=== PATIENT | female | born 1970 | race Caucasian/White ===

== ENCOUNTER → 2017-12-29 14:42 | Outpatient (CLI) | payer BC, SELFPAY ==
[2017-12-29 16:13] LABS: CRP 7.53 mg/L (0.0-3.0)
[2018-01-01 16:10] LABS: Endomysial Antibody IgA Negative (Negative)
[2018-01-02 14:41] LABS: Immunoglobulin A 202 mg/dL (87-352); t-Transglutaminase IgA <2 U/mL (0-3)
== END ==
PROVIDERS: Visit Provider Internal Medicine Gastroenterology
DX: R10.9 Unspecified abdominal pain (principal); R19.7 Diarrhea, unspecified
CPT/HCPCS: 36415; 82784; 83516; 86140; 86255

== ENCOUNTER → 2018-07-05 14:25 | Outpatient (CLI) | payer BC, SELFPAY ==
--- NOTE | 2018-07-05 11:15 | TOBX_PTH ---
PATIENT: JACQUELINE BREAUX LOC: [facility] U#:[id number] AGE/SX: 55/F ROOM: RE07/05/[address]: Dr. River Nguyen MD : 1970 BED: DIS: SPEC #: [id number] RECD: 07/05/18 14:22 STATUS: TIFFANIE KALLI #: [id number] WERNER: 07/05/18 11:[address]: River Nguyen DEPT: SURGICAL PATHOLOGY RECD BY: Jef Faith ENTERED: 07/06/18 08:41 SP TYPE: TONGUE BX OTHR DR: No Primary Care Phys Tissues: Tongue, NOS Procedures: Special Stain Group I Surgery Specimen Level IV GMS Stain (control) HEADER OPERATION: Biopsy of tongue PRE-OP DIAGNOSIS: Chronic tongue irritation; History of irritable bowel syndrome TISSUE SUBMITTED: Punch biopsy ventral surface of tongue MICROSCOPIC DIAGNOSIS Ventral surface of tongue, punch biopsy: A piece of squamous mucosa with underlying skeletal muscle tissue with psoriasiform epithelial hyperplasia. Mild chronic inflammation. Special stain for fungi is negative for organisms; matched control is appropriate. Negative for malignancy. MONTY:rajinder 07/09/18 COMMENT Clinical correlation and appropriate follow up are necessary. MICROSCOPIC DESCRIPTION Slides are reviewed. GROSS DESCRIPTION Received is one container labeled with the patient's name and not further designated. The specimen consists of a single cylindrical fragment of haq tissue measuring 0.3 x 0.2 x 0.2 cm. The specimen is totally submitted in one cassette. / AM:rajinder 07/06/18 TC:3 CPT: 80416, 23808
== END ==
PROVIDERS: Visit Provider Otolaryngology
DX: K14.8 Other diseases of tongue (principal)
CPT/HCPCS: 88305; 88312

== ENCOUNTER 2018-07-10 13:46 | Emergency (ER) | payer BC, SELFPAY ==
[2018-07-10 13:46] VITALS: BP 124/80; PULSE 99; RESP 16; TEMP 36.9; O2SAT 100; BMI 18.9
--- NOTE | 2018-07-10 15:14 | ED.VISSUMM ---
- ER Visit Summary Date of Service: 07/10/18 Chief Complaint: Tongue pain and kidney infection History of Present Illness: The patient is a 47 F who presents with 2 complaints, tongue pain at the site of a biopsy and kidney infection. Patient states that 5 days ago she had a biopsy performed on her tongue due to chronic mouth pain. There was a absorbable suture placed that she states was irritating the roof of her mouth so she cut the top off of it. She states the sutures have not come out yet and she is concerned the site is infected because she states pus came out of it this morning. She denies measured fever but states she has been having sweats and subjective fever. She is also complaining of a kidney infection and states that she gets them frequently. She started taking Azo yesterday due to dysuria. She is having lower back pain, suprapubic discomfort with urination, but states she has not peed at all today. She is decreased p.o. intake due to the tongue pain. History of chronic mouth irritation, IBS, depression, and patient is in pain management in [place]. She status post hysterectomy and hip/knee replacement. ENT in [place] is Dr. Nguyen. Her next follow-up appointment is on July 18. Physical Examination: Vital signs: afebrile, hemodynamically stable, no hypoxia on room air General: well nourished, well developed, in no distress Skin: warm, dry, no rash, no pallor HEENT: normocephalic and atraumatic; PERRL, EOMI, tacky mucous membranes, tongue has small 0.5cm linear biopsy site with granulation tissue, no sutures noted, mild induration under the biopsy site, no exudate, no other oral lesions Cardiovascular: regular rate and rhythm without murmurs, no peripheral edema, 2+ pulses all distal extremities Respiratory: No increased work of breathing, lungs are clear to auscultation bilaterally, no rales, rhonchi or wheezing Abdominal: Abdomen is soft, mild suprapubic tenderness with normoactive bowel sounds, no guarding or rebound, no masses, no CVA tenderness MSK: Moves all extremities, no deformities, normal strength Neuro: Awake and alert, oriented ?4. No facial droop, sensation and motor function intact and symmetric Test Results: Abnormal Lab Results 07/10/18 07/10/18 07/10/18 15:30 15:30 16:49 WBC 8.0 RBC 5.38 Hgb 15.8 H Hct 47.8 H MCV 88.8 MCH 29.4 MCHC 33.1 RDW 13.9 RDW Differential 45.0 H Plt Count 307 MPV 9.6 Immature Gran % (Auto) 0.000 Neut % (Auto) 64.4 Lymph % (Auto) 28.1 [place] % (Auto) 6.1 Eos % (Auto) 1.1 Baso % (Auto) 0.3 Absolute Neuts (auto) 5.2 Absolute Lymphs (auto) 2.25 Total Counted Not Reportable Sodium 143 Potassium 2.8 L Chloride 102 Carbon Dioxide 29.0 Anion Gap 12 BUN 10 Creatinine 0.82 Estim Creat Clear Calc 67.75 Est GFR (MDRD) Af Amer 96 Est GFR (MDRD) Non-Af 79 BUN/Creatinine Ratio 12.3 Glucose 81 Calcium 9.3 Total Bilirubin 0.40 AST 22 ALT 22 Alkaline Phosphatase 86 Total Protein 7.7 Albumin 3.8 Globulin 3.9 Albumin/Globulin Ratio 1.0 Urine Color [place] Urine Clarity Sl Cldy Urine pH 5.0 Ur Specific [place] 1.010 Urine Protein Negative Urine Glucose (UA) Normal Urine Ketones Negative Urine Occult Blood 25 H Urine Nitrite Positive H Urine Bilirubin 3 H Urine Urobilinogen 4 H Ur Leukocyte Esterase 500 H Urine RBC 5-10 SEEN Urine WBC 50-100 SEEN Ur Squamous Epith Cells 10-25 SEEN Amorphous Sediment 1+ URATE Urine Bacteria 1+ Urine Mucus 0 SEEN Emergency Department Course and Treatment: Patient was offered and declined pain medication or antiemetics. Patient's tongue does not look concerning for infection. Dr. Nguyen was consulted, and I discussed the findings on the exam with him. He agreed that it sounded consistent with postbiopsy findings, and does not sound consistent with infection. He stated she already had Magic mouthwash at home and should not need any further prescription for her mouth pain. She is to keep her appointment as already scheduled. Regarding patient's complaint of kidney infection labs were performed showing no leukocytosis. Patient had no renal dysfunction. Potassium was low at 2.8, and patient states she knows she has a history of low potassium. Patient had no EKG changes concerning for electrolyte derangements. She was given oral repletion. Urine was consistent with infection. Patient was started on Cipro for coverage of UTI, with additional coverage if this is early pyelonephritis. Patient is afebrile and has no leukocytosis, thus inpatient management or IV antibiotics are not indicated at this time. Patient was given a prescription for oral potassium supplementation and the prescription for Cipro. She was discharged home and is to keep her appointment with Dr. Nguyen as scheduled. Treatment Plan: [] Disposition: [] Impression: Complicated UTI, hypokalemia, acute on chronic tongue irritation This note was generated with [employer] dictation software. It may contain incorrect words, spelling, and punctuation that were not noted in review of the chart prior to signing ED Disposition - Plan for ED Patient: Disposition: Home or Assisted Living Chief Complaint: Flank Pain Instructions: ED Potassium Deficiency, ED Kidney Infec Female Prescriptions: Ciprofloxacin [Cipro] 500 mg PO BID #14 tab Potassium Chloride [K-Dur] 20 meq PO BID #14 tab Referrals: River Nguyen MD [STAFF PHYSICIAN] - Keep Dilcia appointment Care Physician,No Primary [Primary Care Provider] - Doctor,Your [STAFF PHYSICIAN] - 5-7 Days Additional Instructions: Take the antibiotic exactly as prescribed for the full 7 days for your urine infection. Continue the Azo to help with discomfort. Follow-up with your doctor if you are not having improvement in 3 days. Take the potassium supplements as prescribed for 1 week. Please follow-up with your doctor to discuss her ongoing issues with low potassium. Your follow-up appointment as scheduled on July [address] Nguyen. Continue any medications that he prescribed you to help with symptom relief for your chronic mouth irritation. If you have any worsening of your condition or any new concerning symptoms, please return immediately to the emergency department for another evaluation.
[2018-07-10 15:39] LABS: Absolute Lymphocyte Count 2.25 X10^3/ul (0.83-4.51); Absolute Neutrophil Count 5.2 X10^3/uL (2.0-7.7); Basophil# 0.02 X10^3/uL; Basophil% 0.3 % (0-1); Eosinophil# 0.09 X10^3/uL; Eosinophils% 1.1 % (0-5); Hematocrit 47.8 % (37-47); Hemoglobin 15.8 g/dl (12.0-15.0); Lymphocyte # 2.25 X10^3/ul (4.0); Lymphocyte % 28.1 % (19-41); Mean Corp Hgb Conc 33.1 g/gl (32-36); Mean Corpuscular Hgb 29.4 pg (27.0-32.0); Mean Corpuscular Volume 88.8 fL (81-99); Mean Platelet Vol. 9.6 fl (6.2-12.0); Monocyte# 0.49 X10^3/uL; Monocyte% 6.1 % (0-10); Neutrophil # 5.15 X10^3/uL (2.7-7.7); Neutrophil % 64.4 % (47-70); Platelet Count 307 K/mm3 (150-450); RBC Distribution Width CV 13.9 % (11.6-14.6); Red Blood Count 5.38 M/mm3 (4.2-5.4)
[2018-07-10 15:41] LABS: POSITIVE COUNT NO; POSITIVE DIFFERENTIAL NO; POSITIVE MORPHOLOGY NO
[2018-07-10] MEDS: 0.9% Normal Saline 1,000 ML 1000 ML IV (15:47)
[2018-07-10 15:54] VITALS: BP 125/75; PULSE 95; RESP 14; O2SAT 98
[2018-07-10 16:08] LABS: AST(SGOT) 22 U/L (15-37); Alanine Aminotransfer ALT/SGPT 22 U/L (13-56); Albumin, Serum 3.8 g/dL (3.2-5.0); Alkaline Phosphatase 86 U/L (45-117); Anion Gap 12 (5-15); BUN 10 mg/dL (7-18); BUN/Creat Ratio 12.3 RATIO (10-20); Calcium,Total 9.3 mg/dL (8.5-10.1); Chloride 102 mmol/L (98-107); Creatinine, Serum 0.82 mg/dL (0.55-1.02); EST Glomerular Filtration Rate 79 mL/min (>60); Est Glom Filt Rate - Afr Amer 96 mL/min (>60); Estimated Creatinine Clearance 67.75 ml/min; Globulin 3.9 g/dL (2.2-4.2); Glucose 81 mg/dL (74-106); Potassium 2.8 mmol/L (3.5-5.1); Protein, Total 7.7 g/dL (6.4-8.2); Sodium Level 143 mmol/L (136-145)
[2018-07-10 16:57] LABS: Mucous, Urine 0 SEEN /hpf (<or=2+)
[2018-07-10 17:03] VITALS: BP 131/70; PULSE 85; RESP 14; O2SAT 98
[2018-07-10 17:03] LABS: Glucose, Dipstick Normal (Normal); Ketone-Dipstick Negative (Negative); Leukocyte Esterase-Dipstick 500 /ul (Negative); Nitrite-Dipstick Positive (Negative); Occult Blood-Urine 25 /ul (Negative); Protein-Dipstick Negative (Negative); Urine Urobilinogen 4 mg/dl (Normal)
[2018-07-10 17:04] LABS: Urine Bilirubin Dipstick 3 mg/dL (Negative)
[2018-07-10 17:09] LABS: Color, Urine Orange (Yellow); Urine Clarity Sl Cldy (Clear)
[2018-07-10 17:10] LABS: Red Blood Cells-Urine 5-10 SEEN /hpf (0-5); Squamous Epithelial Cells - UA 10-25 SEEN /hpf (5-10); White Blood Cells 50-100 SEEN /hpf (0-5)
[2018-07-10 17:11] LABS: Amorphous Sediment 1+ URATE; Bacteria 1+ /hpf (None Seen)
--- NOTE | 2018-07-10 17:33 | ED.DEP ---
ED Disposition - Plan for ED Patient: Disposition: Home or Assisted Living Chief Complaint: Flank Pain Instructions: ED Kidney Infec Female, ED Potassium Deficiency Prescriptions: Ciprofloxacin [Cipro] 500 mg PO BID #14 tab Potassium Chloride [K-Dur] 20 meq PO BID #14 tab Referrals: Care Physician,No Primary [Primary Care Provider] - River Nguyen MD [STAFF PHYSICIAN] - Keep Dilcia appointment Doctor,Your [STAFF PHYSICIAN] - 5-7 Days Additional Instructions: Take the antibiotic exactly as prescribed for the full 7 days for your urine infection. Continue the Azo to help with discomfort. Follow-up with your doctor if you are not having improvement in 3 days. Take the potassium supplements as prescribed for 1 week. Please follow-up with your doctor to discuss her ongoing issues with low potassium. Your follow-up appointment as scheduled on July [address] Nguyen. Continue any medications that he prescribed you to help with symptom relief for your chronic mouth irritation. If you have any worsening of your condition or any new concerning symptoms, please return immediately to the emergency department for another evaluation.
[2018-07-10 17:54] VITALS: BP 128/75; PULSE 80; RESP 14; O2SAT 98
== END 2018-07-10 17:57 | disposition home or self-care (01) ==
PROVIDERS: Emergency Provider Emergency Medicine
DX: N39.0 Urinary tract infection, site not specified (principal); E87.6 Hypokalemia; K14.8 Other diseases of tongue; K58.9 Irritable bowel syndrome, unspecified; F32.9 Major depressive disorder, single episode, unspecified; Z90.710 Acquired absence of both cervix and uterus; Z96.649 Presence of unspecified artificial hip joint; Z96.659 Presence of unspecified artificial knee joint
CPT/HCPCS: 80053; 81001; 85025; 87077; 87086; 87088; 87186; 93005; 96360; 96361; 99284

== ENCOUNTER 2019-10-02 06:16 | Day surgery (SDC) | payer BC, SELFPAY ==
[2019-09-19 14:17] VITALS: BMI 18.9
--- NOTE | 2019-09-20 12:02 | HP_ITS ---
I have re-examined the patient. There are no clinical changes since date of exam. Intake Vital Signs 09/19/19 Body Mass Index (BMI) 18.9 09/19/19 Height 5 ft 5 in 09/19/19 Weight: 120 lb 09/19/19 Body Mass Index (BMI) 20.0 Intake Visit Reasons: RIGHT SHOULDER Is patient in pain?: Yes Pain scale (1-10): 10 Allergies sulfamethoxazole [From Bactrim] Allergy (Verified 09/19/19 13:58) Hives trimethoprim [From Bactrim] Allergy (Verified 09/19/19 13:58) Hives Medications Ciprofloxacin [Cipro] 500 mg PO BID #14 tab 07/10/18 [Rx] Potassium Chloride [K-Dur] 20 meq PO BID #14 tab 07/10/18 [Rx] alprazolam 1 mg tablet 1 mg PO BID 09/19/19 [History Confirmed 09/19/19] atorvastatin 10 mg tablet 10 mg PO DAILY 09/19/19 [History Confirmed 09/19/19] bupropion HCl XL 300 mg 24 hr tablet, extended release 300 mg PO QAM 09/19/19 [History Confirmed 09/19/19] eluxadoline 100 mg tablet 100 mg PO BID 09/19/19 [History Confirmed 09/19/19] estradiol 1 mg/gram (0.1 %) transdermal gel packet 1 packet TRANSDERMAL DAILY 09/19/19 [History Confirmed 09/19/19] galcanezumab-gnlm 120 mg/mL subcutaneous syringe 120 mg SC QMONTH 09/19/19 [History Confirmed 09/19/19] hydrochlorothiazide 12.5 mg capsule 12.5 mg PO DAILY 09/19/19 [History Confirmed 09/19/19] ketorolac 15.75 mg/spray nasal spray 15.75 mg INTRANASAL Q8H 09/19/19 [History Confirmed 09/19/19] topiramate XR 100 mg capsule,extended release 24 hr 100 mg PO DAILY 09/19/19 [History Confirmed 09/19/19] PFSH Social History (Updated 09/20/19 @ 12:02 by Marlee Yo DO) Smoking Status: Never smoker HPI RIGHT SHOULDER: Surgical H&P: Yes Details: Parts of this documentation were recorded by a scribe, this documentation accurately reflects the service provided and the decisions made by , Marlee Yo, DO 09/19/19 3636. JACQUELINE BREAUX is a 49 year old F here today for right shoulder pain. Patient notes that she has had right shoulder pain for many months. She denies any known injury. She started exercising and she just noticed weakness. She notes that she has pain over her anterior and posterior shoulder, into her humerus. She states that she has dropped items. Patient has limited shoulder range of motion. Her range of motion is affecting her ADLs. Patient had a steroid injection 4-5 weeks ago which was not helpful. She completed about 8 weeks of physical therapy and was given a HEP, which has not been helpful. Patient sees a pain management doctor in [place] for injections into her cervical spine. Patient had xrays and MRI which she brought with her. She has hydrocodone as needed for her migraines. She is unable to take an anti-inflammatories due to migraines. She also complains of bilateral carpal tunnel. Patient has numbness and tingling into her thumb,index and middle finger. She had an EMG which showed bilateral carpal tunnel. Patient denies any injection. She completed physical therapy for her wrist. Patient wears wrist braces nightly. She states that she wakes up crying due to her pain. Patient notices weakness and is dropping items. ROS Musc Reports joint pain, Reports limited joint movement, Reports muscle weakness, Reports numbness, Reports radiating pain into limb, Reports stiffness, Reports tingling Skin/Breast Reports system reviewed and no additional complaints, except as docu Neuro Yes system reviewed and no additional complaints, except as docu, Yes numbness, Yes tingling Ortho Exam Right Shoulder Skin/Wound: Yes CDI Contralateral Normal: Yes Testing: Positive Hawkin's, Neer's, Speed's, TTP Biceps, PROM-Forward Elevation 0-180, Sulcus Sign and Floyd SHOULDER: weakness with shoulder flexion and IR No rales rhonchi wheezing, no abdominal pain, no audible bruits Assessment & Plan Problems 1. Biceps tendonitis on right M75.21 2. Rotator cuff tear, right M75.101 3. Impingement syndrome of right shoulder M75.41 Plan Personally reviewed the patient's medical history, medications, surgeries and recent exams if available. X-rays were reviewed. There is no obvious fracture, dislocation, or lucency noted. Educated on the anatomy of the shoulder. Spoke with her about the benefits of a shoulder surgery. Reviewed the pre-operative plans with the patient. Risks and benefits of the procedure were fully explained, including but not limited to infection, neurovascular injury, continued pain, arthritis, stiffness, need for further surgery, re-injury, DVT, PE, general risks of anesthesia, and loss of limb or life. The patient understands all the risks and does wish to proceed with written consent. Follow up for 2 week post op appointment or sooner if pain, swelling, numbness or associated symptoms, or concerns develop. All questions answered. Patient in agreement of plan. Coding Level of Care Code Off vis,new,level 3 Diagnoses Biceps tendonitis on right M75.21 Rotator cuff tear, right M75.101 Impingement syndrome of right shoulder M75.41 09/20/19 1202 <Electronically signed by Marlee del valle DO> Date _ Marlee Yo DO
[2019-10-02] VITALS (7 sets, daily range): BP systolic 99–114; BP diastolic 48–62; PULSE 72–82; RESP 16; TEMP 36.1–36.9; O2SAT 93–99; BMI 20.3
[2019-10-02 06:55] LABS: Hematocrit 47.4 % (37-47); Hemoglobin 15.4 g/dL (12.0-15.0); Mean Corp Hgb Conc 32.5 g/dL (32-36); Mean Corpuscular Hgb 30.3 pg (27.0-32.0); Mean Corpuscular Volume 93.3 fL (81-99); Platelet Count 335 K/mm3 (150-450); RBC Distribution Width CV 12.7 % (11.6-14.6); RBC Distribution Width SD 43.6 fl (35.1-43.9); Red Blood Count 5.08 M/mm3 (4.2-5.4); White Blood Count 8.7 K/mm3 (4.4-11.0)
[2019-10-02] MEDS: Lactated Ringers 1,000 ML 100 ML IV ×2 (07:05→09:00)
--- NOTE | 2019-10-02 07:24 | PCM.DC.ORTHO ---
Discharge Diet: No Restrictions - remove dressings on pod4 and apply bandaids to incision sites, may get incision wet at that time, sling at all times unless showering, may move shoulder, wrist and fingers as tolerated, follow up in 2 weeks, call with concerns Discharge Activity: May Not Drive May shower in (days): 1 Ice area for (Minutes): 20 - Every hour while awake. Weight Bearing Status: Weight bearing as tolerated Keep extremity elevated above heart level: Operative Extremity Call your doctor if your incision/area has: Continuous Slow Oozing, Sudden Increased Bleeding, Increased Pain/ Swelling, Increased Redness, Foul Smelling Discharge Call your doctor if you observe: Fever of 101 or Higher, Coldness, Increased Pain, Numbness or Tingling, Change in Color, Calf discomfort Allergies/Adverse Reactions: Allergies sulfamethoxazole [From Bactrim] Allergy (Verified 09/30/19 09:04) Hives trimethoprim [From Bactrim] Allergy (Verified 09/30/19 09:04) Hives NSAIDS (Non-Steroidal Anti-Inflamma Adverse Reaction (Verified 09/30/19 09:05) Other IBS Medications to take at Discharge alprazolam 1 mg tablet 1 mg PO BID 09/19/19 atorvastatin 10 mg tablet 10 mg PO DAILY 09/19/19 bupropion HCl XL 300 mg 24 hr tablet, extended release 300 mg PO QAM 09/19/19 eluxadoline 100 mg tablet 100 mg PO BID 09/19/19 galcanezumab-gnlm 120 mg/mL subcutaneous syringe 120 mg SC QMONTH 09/19/19 hydrochlorothiazide 12.5 mg capsule 12.5 mg PO DAILY 09/19/19 ketorolac 15.75 mg/spray nasal spray 15.75 mg INTRANASAL Q8H PRN 09/19/19 topiramate XR 100 mg capsule,extended release 24 hr 100 mg PO DAILY 09/19/19 Estradiol 1 mg PO DAILY 09/30/19 Hydrocodone Bitart/Apap 5-325 [[place] 5MG-325MG] 1 - 2 tab PO Q6H PRN PRN 5 Days #40 tab 10/02/19 Zolpidem Tartrate [Ambien (Generic)] 5 mg PO QHS PRN PRN #14 tab 10/02/19 The following prescriptions were given: Zolpidem Tartrate [Ambien (Generic)] 5 mg PO QHS PRN PRN #14 tab PRN Reason: Insomnia Transmission Status: Received by [id number] Hydrocodone Bitart/Apap 5-325 [[place] 5MG-325MG] 1 - 2 tab PO Q6H PRN PRN 5 Days #40 tab PRN Reason: Pain Transmission Status: Received by [id number] Primary Care Physician: LIZZY NEGRETE [Other] Test Results: Test results from this visit will be discussed in further detail at your follow-up appointment, if applicable. Please Follow Up With: Marlee Yo, DO - [phone]
--- NOTE | 2019-10-02 07:28 | OP.PCM_ITS ---
Report of Operation Date of Procedure: 10/02/19 Pre-Operative Diagnosis: right shoulder rc tendinosis, biceps tendinosis/labral tear, subacromial impingment syndrome Post-Operative Diagnosis: same Surgery/Procedure Performed:: right shoulder arthroscopy, subacromial decom pression/acromioplasty, labral debridement, open subpec biceps tenodesis practicing urologist: Larry Hampton Type of Anesthesia:: General/Regional Anesthesiologist: Varinder Umanzor Specimen's removed: biceps tendon Estimated Blood Loss (mL): minimal Fluids Replaced: 1200cc lr Description of Procedure: Preop note Patient seen and examined preop holding area. Right shoulder was marked. Patient has history of right shoulder impingement failed conservative treatment including injections and physical therapy patient progressively getting more painful and weaker and would like to proceed with right shoulder arthroscopy repair as irrigated indicated. Risk benefits and alternatives to surgery were discussed the patient. Risks include but not limited to blood loss, blood clot, infection, neurovascular, failure procedure, loss of life and loss of limb. Patient is aware would like proceed with right shoulder arthroscopy repair as indicated. Operative note Patient seen and examined preoperative holding area. Right shoulder was marked. Patient brought to the operating room placed supine on the operating table. Sign, anesthesia, antibiotics were accelerator systems director. Right arm was prepped and draped in usual sterile fashion beachchair positioning. All bony promises well-padded SCDs placed on her contralateral on her bilateral lower extremity. Please note the fci through beachchair position we did recheck her blood pressure and she did anything that was unstable before full beachchair position was maintained. We marked our bony landmarks were marked our portal placement. Timeout was performed. We then insufflated the glenohumeral joint from the posterior aspect. Using 11 blade creator posterior portal began our diagnostic arthroscopy. Her biceps tendon insertion onto the labrum was unstable and there was post anterosuperior labral tearing from the anterior superior aspect of the glenoid. There were no loose bodies in the inferior recess of the glenohumeral joint was intact the subscap was intact the rotator cuff footprint was intact. We then inserted a basket and release the biceps tendon at its insertion onto the labrum. We then gently debrided back to its insertion with the labrum with a of the labrum with a shaver. We then also trim back the unstable labral pieces on the articular aspect from the anterior posterior aspect of the shoulder and irrigated the shoulder with copious amounts of sterile saline. We then moved to the subacromial space. Patient had extensive bursitis throughout. We then created a lateral portal under direct visualization. We then resected back to the bursa is a combination of a shaver and ablator wand coagulating any bleeders. We then coplanar type II acromion with a bur. We irrigated the subacromial space with copious amounts of sterile saline. We closed the portals with interrupted 4-0 nylon stitches. We then moved to our sub-sub-pec tenodesis. We then reprepped the area with the allotted 3 minutes. We made a 2 cm incision just distal to the pec insertion. We dissected down so we used a 15 blade and then dissected down with Metzenbaums to the biceps tendon biceps tendon was then removed was then brought out of the incision we then measured appropriate length and then truncated the remaining biceps sent to pathology for further evaluation. We then whipstitched into the biceps tendon and placed the ends of the suture loop through the Arthrex pec button in the system. We then measured appropriate length for our placement of our biceps onto the bone we drilled unicortical he and then placed the pec button flipped to the needle cortically into the humeral shaft. We then pulled out all of our tension and then oversewed with a free needle through the periosteum into the biceps tendon for reinforcement. We then irrigated the incision with copious muscle sterile saline the incision was closed with 2-0 Vicryl in a running 4-0 Monocryl. Sterile dressings were aerated patient tied procedure well no complications. We then moved to our bilateral carpal tunnel injections under standard sterile technique. Standard sterile patient transferred to recovery room in stable condition no complications Patient did receive a preoperative regional block Postoperative note May move shoulder wrist and hand as tolerated [facility] We will give family pictures in 2 weeks with diagrams Call with increased pain numbness tingling or other issues arises This note was generated with [employer] software. It may contain incorrect words, spelling, and punctuation that were not noted in checking the note before signing.
[2019-10-02] MEDS: Cefazolin 2 GM in 0.9% Normal Saline 100 ML IV (07:55)
--- NOTE | 2019-10-02 08:00 | TESH_PTH ---
PATIENT: JACQUELINE BREAUX [place] [facility] [place][id number] AGE/SX: 49/F ROOM: RE10/02/[address]: Dr. Marlee Yo DO : 1970 BED: DIS: 10/02/2019 SPEC #: [id number] RECD: 10/02/19 15:23 STATUS: TIFFANIE KALLI #: [id number] WERNER: 10/02/19 08:[address]: Marlee Yo DEPT: SURGICAL PATHOLOGY RECD BY: Jef Faith ENTERED: 10/03/19 09:54 SP TYPE: TENDON BETHANIE DR: Out of Town Doctor Tissues: Tendon and tendon sheath, NOS Procedures: Surgery Specimen Level III HEADER OPERATION: Arthroscopy, subacromial decompression/acromioplasty PRE-OP DIAGNOSIS: Biceps tendonitis on right M75.21, rotator cuff tear, right M75.01, impingement syndrome of right shoulder M75.41 TISSUE SUBMITTED: Daniele tendon MICROSCOPIC DIAGNOSIS Bicep tendon: A piece of dense fibroconnective tissue with reactive changes. MONTY:rajinder 10/04/19 MICROSCOPIC DESCRIPTION Slides are reviewed. GROSS DESCRIPTION Received in fixative is one container labeled with the patient's name and designated bicep tendon. The specimen consists of a piece of haq-white, tendinous tissue measuring 4.5 x 0.7 x 0.2 cm. The entire specimen is submitted in one cassette. / MONTY:rajinder 10/03/19 TC:5 CPT: 81978
[2019-10-02] MEDS: Epinephrine (1 mg/ml) 1 MG/ML VIAL (08:28)
[2019-10-02] MEDS: Mupirocin Ointment 22gm Tube 1 APPLIC (09:30)
[2019-10-02] MEDS: Bupivacaine Mpf 0.5% 30 ML VIAL (09:30)
[2019-10-02] MEDS: Triamcinolone Acetonide 40 MG/ML Vial (09:30)
== END 2019-10-02 12:08 | disposition home or self-care (01) ==
LOC: SDC 06:20 → AC 06:20
PROVIDERS: Anesthesiology; Referring Provider Orthopaedic Surgery; Visit Provider Orthopaedic Surgery
PROC: (CPT 29827; principal; 2019-10-02 07:40)
DX: M75.21 Bicipital tendinitis, right shoulder (principal); M75.101 Unspecified rotator cuff tear or rupture of right shoulder, not specified as traumatic; M75.41 Impingement syndrome of right shoulder; S43.401A Unspecified sprain of right shoulder joint, initial encounter; X58.XXXA Exposure to other specified factors, initial encounter; Y93.9 Activity, unspecified; Y92.9 Unspecified place or not applicable; G56.03 Carpal tunnel syndrome, bilateral upper limbs; G43.909 Migraine, unspecified, not intractable, without status migrainosus; G25.81 Restless legs syndrome; K58.9 Irritable bowel syndrome, unspecified; E78.00 Pure hypercholesterolemia, unspecified; F41.9 Anxiety disorder, unspecified; F32.9 Major depressive disorder, single episode, unspecified; Z79.899 Other long term (current) drug therapy; Z87.891 Personal history of nicotine dependence
CPT/HCPCS: 01716; 23430; 29823; 29826; 36415; 85027; 88304; J7120; J2405

== ENCOUNTER 2019-10-24 11:37 | Outpatient (RCR) | payer BC, SELFPAY ==
[2019-10-15 13:56] VITALS: BMI 20.3
[2019-10-22 15:01] VITALS: BMI 20.3
--- NOTE | 2019-10-24 13:34 | HP.PTEVAL_ITS ---
Patient's Visit Information JACQUELINE BREAUX is a 49 year old F referred to Physical Therapy by Marlee Yo DO with a diagnosis of RIGHT RC/SAD/ACROMIOPLASTY/OPEN BICEPS TENDONESIS. Date of Evaluation: 10/24/19 Physical Therapist: Justin Perez PT, Cert MDT, OCS - Visit Plan Frequency: 1-2x /Week Duration: 3 Months Plan: S/P SHOULDER ARTHROSCOPIC SAD/OPEN BICEPS TENDONESIS ON 10/02/19. PLAN TO UNDERGO. SEE GUIDELINES FOR OPEN BICEPS TENDOSIS. SLING 6WEEKS,LIMIT ER 40 DEGREES 4WEEKS,NO EXTENSION OR HORIZONTAL EXTENSION 4-6 WEEKS,NO BICEP TENSION 6WEEKS,NO EXCESSIVE BICEP LOADING 8 WEEKS,. AAROM/PROM SHOULDER LIMIT ER 40 DEGREES ,ISOMTRICS ,CP - Subjective Findings: This 49 y/o female presents to physical therapy with Right RC/acromioplasty/ope biceps tendonesis. Patient right shoulder arthrosopy ,subacromial decompression/ acromioplasty ,labral debridement and open biceps tendonesis on 10/02/[address] Yo at [facility].D/C home to sling for 6weeks. Plan to see DR Logan for left carpal tunnel surgery. Patient had surgery pain many years. Patient right shoudler global 2/10. Patient has limiations with all functional activities and self hygine . Patient denies parathesia/tingling shoulder. Plan to leave to [place] Oct 28 plan to return to for surgery on right CTS on 11/07.Patient pain affects sleeping Patient surgery affects QOL and function. 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 SOCIAL: - Pain Right Shoulder Pain Intensity (Out of 10): 2 Pain Intensity Range: 10 - Objective POSTURE: mild foward posture,sling sling intact. NEURO: intact ,except with CT. PALPATION: tender shoulder. SKIN: intact. PROM: shoulder flexion 150 degrees,ER 40 degrees,PROM elbow WFL. MMT: NT - Goals Goal 1:: Patient to be Independant with HEP Goal Time Frame: 6-8 Weeks Goal 2:: Patient to decrease pain by 80% or> to improve function and QOL. Goal Time Frame: 6-8 Weeks Goal 3:: Patient to improve AROM right shoulder flexion/abduction 150 degrees and ER/IR WFL for function. Goal Time Frame: 6-8 Weeks Goal 4:: Patient to increase strength right shoulder to 4/5 except deltoid 4-/5 to improve function. Goal Time Frame: 6-8 Weeks Goal 5:: Patient to improve quick dash by 10 points or > to improve QOL and function. Goal Time Frame: 6-8 Weeks Goal 6:: Patient return to prior limiations with ADLS' and self hygine with min limiations - Rehabilitation Potential Physical Therapy Diagnosis: This patient under s/p arthroscopic subacromial decomprssion ,acromioplasty,labral debridement shoulder on 10/02 with decrease ROM,strength impair function and ADLS' Rehabilitation Potential: Good - Anticipated Interventions Patient/Client Instruction: Educate patient on: Condition, Plan of Care For the Purpose of:: To decrease pain, To increase ROM, To improve muscle performance and motor function, To improve ability to perform ADL's, To increase tolerance to activity/condition/position, To improve performance and independence with ADL's, To improve ability of physical actions for home/community/work/leisure, To improve health of tissue, To decrease soft tissue restriction, To increase flexibility/ROM, To improve ability to perform tasks related to life management Therapeutic Exercise to Include: Strength training, Passive ROM, Active ROM, Dari Exercises Comment: SEE GUIDELINES FOR BICEPS TENDONESIS For the Purpose of:: To decrease pain, To increase ROM, To improve muscle performance and motor function, To improve ability to perform ADL's, To increase tolerance to activity/condition/position, To improve performance and independence with ADL's, To improve ability of physical actions for home/community/work/leisure, To improve health of tissue, To decrease soft tissue restriction, To increase flexibility/ROM, To assume or resume ADL's, To improve ability to perform tasks related to life management Cryotherapy (ice pack, ice massage): Yes Thermo therapy (hot pack): Yes For the Purpose of:: To decrease pain, To increase ROM, To improve health of tissue, To decrease soft tissue restriction Thank you for the opportunity to evaluate your patient. For Medicare and Medicare HMO plans, please review the plan of care and approve it. It will need to be FAXED BACK to us at [phone] for Medicare purposes. For Medicare only, by signing this I certify the plan of care. Please let me know if there are questions or concerns regarding this plan of care. Physician Signature: Date:
== END 2019-10-24 19:00 | disposition home or self-care (01) ==
LOC: PT 11:37
PROVIDERS: Referring Provider Orthopaedic Surgery; Visit Provider Orthopaedic Surgery
DX: Z98.890 Other specified postprocedural states (principal)
CPT/HCPCS: 97110; 97162

== ENCOUNTER 2019-10-25 08:32 | Day surgery (SDC) | payer BC, SELFPAY ==
[2019-10-15 13:56] VITALS: BMI 20.3
--- NOTE | 2019-10-22 03:01 | HP_ITS ---
Intake Intake Visit Reasons: left carpal tunnel Is patient in pain?: Yes Pain scale (1-10): 10 Allergies sulfamethoxazole [From Bactrim] Allergy (Verified 09/30/19 09:04) Hives trimethoprim [From Bactrim] Allergy (Verified 09/30/19 09:04) Hives NSAIDS (Non-Steroidal Anti-Inflamma Adverse Reaction (Verified 09/30/19 09:05) Other Medications alprazolam 1 mg tablet 1 mg PO BID 09/19/19 [History Confirmed 10/21/19] atorvastatin 10 mg tablet 10 mg PO DAILY 09/19/19 [History Confirmed 10/21/19] bupropion HCl XL 300 mg 24 hr tablet, extended release 300 mg PO QAM 09/19/19 [History Confirmed 10/21/19] eluxadoline 100 mg tablet 100 mg PO BID 09/19/19 [History Confirmed 10/21/19] galcanezumab-gnlm 120 mg/mL subcutaneous syringe 120 mg SC QMONTH 09/19/19 [History Confirmed 10/21/19] hydrochlorothiazide 12.5 mg capsule 12.5 mg PO DAILY 09/19/19 [History Confirmed 10/21/19] ketorolac 15.75 mg/spray nasal spray 15.75 mg INTRANASAL Q8H PRN 09/19/19 [History Confirmed 10/21/19] topiramate XR 100 mg capsule,extended release 24 hr 100 mg PO DAILY 09/19/19 [History Confirmed 10/21/19] Estradiol 1 mg PO DAILY 09/30/19 [History Confirmed 10/21/19] Zolpidem Tartrate [Ambien (Generic)] 5 mg PO QHS PRN PRN #14 tab 10/02/19 [Rx Confirmed 10/21/19] hydrocodone 5 mg-acetaminophen 325 mg tablet 2 tab PO Q6H PRN #30 tab 10/11/19 [Rx Confirmed 10/21/19] PFSH Social History (Updated 10/22/19 @ 15:01 by JOEL Reeves) Smoking Status: Former smoker HPI left carpal tunnel: Surgical H&P: Yes Details: Parts of this documentation were recorded by a scribe, this documentation accurately reflects the service provided and the decisions made by Larry rush PA 10/21/19 2531. JACQUELINE BREAUX is a 49 year old F here today for pain in the left hand secondary to carpal tunnel. She has constant pain and numbness in all the fingers. She saw Dr Yo last week and needs to sign consent today for upcoming release. No changes in medications or health history. Ortho Exam Right Wrist/Hand Skin/Wound: No Swelling, No Ecchymosis Left Wrist/Hand Skin/Wound: No Swelling, No Ecchymosis, No erythema Left Wrist: Yes ROM-Extension 0-60, Yes ROM-Flexion 0-80, Yes Durken's Test and Yes Phalen's; no Snuffbox tenderness or no Bety's Test WRIST: No acute abnormalities on inspection. She has full range of motion of the wrist and fingers. She has normal distal radial pulses and capillary refill. Patient does have evidence of carpal tunnel syndrome with positive Ray's and Phalen's test. Assessment & Plan Problems 1. Left carpal tunnel syndrome G56.02 Plan Patient presents today to sign updated consent for left carpal tunnel syndrome. Patient states that she thinks she already has a date scheduled for her surgery. Patient also states that she is going to have the right wrist done as soon as she is able after the left wrist before the first of the year. Risks and benefits of surgery were discussed with patient as well as the procedure and healing/rehabilitation. All of her questions were answered and consent was signed in office today. Patient be contacted by surgery department for presurgery/anesthesia testing. She will not know the time of her surgery until the day before in the afternoon. Patient also has presurgery antimicrobial cleanser to be used night before morning of the procedure. She has no other questions at this time. This note was generated with [employer] dictation software. It may contain incorrect words, spelling, and punctuation that were not noted in checking the note before signing. Coding Level of Care Code Off vis,est,level 2 Diagnoses Left carpal tunnel syndrome G56.02 10/22/19 1501 <Electronically signed by Larry MALDONADO> Date _ Larry MALDONADO
[2019-10-22 15:01] VITALS: BMI 20.3
[2019-10-25] VITALS (9 sets, daily range): BP systolic 96–114; BP diastolic 42–83; PULSE 73–83; RESP 15–16; TEMP 36.4–36.7; O2SAT 92–100; BMI 19.6
[2019-10-25] MEDS: Lactated Ringers 1,000 ML 100 ML IV ×2 (09:14→12:24)
--- NOTE | 2019-10-25 10:00 | HP.PCM_ITS ---
History and Physical [facility] have re-examined the patient. There are no clinical changes since date of exam. Medical Records Department [address] [place] [address] History and Physical 10/22/19 0301 MR#: [id number] Acct: [id number] Name: JACQUELINE BREAUX Rep #: [id number] : 1970 49 From: Larry MALDONADO PCP: Status: PRE [facility] – [place] Location: DEC Intake Intake Visit Reasons: left carpal tunnel Is patient in pain?: Yes Pain scale (1-10): 10 Allergies sulfamethoxazole [From Bactrim] Allergy (Verified 09/30/19 09:04) Hives trimethoprim [From Bactrim] Allergy (Verified 09/30/19 09:04) Hives NSAIDS (Non-Steroidal Anti-Inflamma Adverse Reaction (Verified 09/30/19 09:05) Other No rales rhonchi wheezing no abdominal pain no audible bruits, numbness for second third with weakness with DIP flexion of the first and second ray Medications alprazolam 1 mg tablet 1 mg PO BID 09/19/19 [History Confirmed 10/21/19] atorvastatin 10 mg tablet 10 mg PO DAILY 09/19/19 [History Confirmed 10/21/19] bupropion HCl XL 300 mg 24 hr tablet, extended release 300 mg PO QAM 09/19/19 [History Confirmed 10/21/19] eluxadoline 100 mg tablet 100 mg PO BID 09/19/19 [History Confirmed 10/21/19] galcanezumab-gnlm 120 mg/mL subcutaneous syringe 120 mg SC QMONTH 09/19/19 [History Confirmed 10/21/19] hydrochlorothiazide 12.5 mg capsule 12.5 mg PO DAILY 09/19/19 [History Confirmed 10/21/19] ketorolac 15.75 mg/spray nasal spray 15.75 mg INTRANASAL Q8H PRN 09/19/19 [History Confirmed 10/21/19] topiramate XR 100 mg capsule,extended release 24 hr 100 mg PO DAILY 09/19/19 [History Confirmed 10/21/19] Estradiol 1 mg PO DAILY 09/30/19 [History Confirmed 10/21/19] Zolpidem Tartrate [Ambien (Generic)] 5 mg PO QHS PRN PRN #14 tab 10/02/19 [Rx Confirmed 01/08] hydrocodone 5 mg-acetaminophen 325 mg tablet 2 tab PO Q6H PRN #30 tab 10/11/19 [Rx Confirmed 10/21/19] PFSH Social History (Updated 10/22/19 @ 15:01 by JOEL Reeves) Smoking Status : Former smoker 1 I have re-examined the patient. There are no clinical changes since date of exam.
--- NOTE | 2019-10-25 10:01 | DCINST_ITS ---
Discharge Diet: No Restrictions - Leave dressing intact, follow-up in 10 to 14 days in the office for dressing removal and suture removal, call with concerns Discharge Activity: May Not Drive May shower in (days): 1 Ice area for (Minutes): 20 - Every hour while awake. Weight Bearing Status: Weight bearing as tolerated Keep extremity elevated above heart level: Operative Extremity Call your doctor if your incision/area has: Continuous Slow Oozing, Sudden Increased Bleeding, Increased Pain/ Swelling, Increased Redness, Foul Smelling Discharge Call your doctor if you observe: Fever of 101 or Higher, Coldness, Increased Pain, Numbness or Tingling, Change in Color, Calf discomfort Allergies/Adverse Reactions: Allergies sulfamethoxazole [From Bactrim] Allergy (Verified 10/25/19 08:44) Hives trimethoprim [From Bactrim] Allergy (Verified 10/25/19 08:44) Hives NSAIDS (Non-Steroidal Anti-Inflamma Adverse Reaction (Verified 10/25/19 08:44) Other IBS Medications to take at Discharge alprazolam 1 mg tablet 1 mg PO BID 09/19/19 atorvastatin 10 mg tablet 10 mg PO DAILY 09/19/19 bupropion HCl XL 300 mg 24 hr tablet, extended release 300 mg PO QAM 09/19/19 eluxadoline 100 mg tablet 100 mg PO BID 09/19/19 galcanezumab-gnlm 120 mg/mL subcutaneous syringe 120 mg SC QMONTH 09/19/19 hydrochlorothiazide 12.5 mg capsule 12.5 mg PO DAILY 09/19/19 ketorolac 15.75 mg/spray nasal spray 15.75 mg INTRANASAL Q8H PRN 09/19/19 topiramate XR 100 mg capsule,extended release 24 hr 100 mg PO DAILY 09/19/19 Estradiol 1 mg PO DAILY 09/30/19 Zolpidem Tartrate [Ambien (Generic)] 5 mg PO QHS PRN PRN #14 tab 10/02/19 hydrocodone 5 mg-acetaminophen 325 mg tablet 2 tab PO Q6H PRN #30 tab 10/11/19 Primary Care Physician: LIZZY NEGRETE [Other] Test Results: Test results from this visit will be discussed in further detail at your follow- up appointment, if applicable. Please Follow Up With: Marlee Yo, - [phone]
--- NOTE | 2019-10-25 10:02 | OP.PCM_ITS ---
Report of Operation Date of Procedure: 10/25/19 Pre-Operative Diagnosis: left carpal tunnel syndrome; h/o previous left carpal tunnel release Post-Operative Diagnosis: same Surgery/Procedure Performed:: revision left carpal tunnel release bevel face stoner and polisher: Larry Hampton Type of Anesthesia:: Block,Terrance Anesthesiologist: Jaya Borjas Fluids Replaced: 800cc lr Description of Procedure: Preop note Patient is a 49-year-old female with continued left carpal tunnel pain had a left carpal tunnel release decades ago with continued numbness and tingling and EMG confirms carpal tunnel syndrome. Patient risks benefits alternatives surgery discussed with patient. Risk include but not limited to blood loss, blood clot, infection, neurovascular, failure procedure, loss of life and loss of limb. Patient having increasing weakness and pain and would like left revision carpal tunnel release. Operative note Patient seen and examined preoperative holding area. Left hand was marked. Patient brought to the operating placed supine on the operating table. Sign, anesthesia, antibiotics were administered. Left arm was prepped and draped usual sterile fashion with a tourniquet around her upper arm after Terrance block was in and Terrance block was initiated. We marked out our incision for revision carpal tunnel release and extending the previous incision and going ulnar across the wrist crease at 45 degree angle and extending about a centimeter proximally. Timeout was performed. We then used a 15 blade to cut through the skin dissect down tenotomies to the scar tissue and scar tissue was carefully excised the nerve was adherent to the scar tissue underneath we did use tenotomies at that point after releasing the nerve from the scar tissue it did fall back into the off of the scar tissue were able then to dissected again with a 15 blade carefully making sure to protect all neurovascular pressures at all times. We did dissected distally to to be saw the fat pad and then proximally across the wrist crease. We then after releasing the scar tissue and the transverse carpal ligament on top of the nerve there is also scar tissue around the nerves we performed a neural lysis we did find the recurrent branch of the median nerve and that was had scar tissue and was released as well. We then irrigated the incision with copious nonsterile saline. Tourniquet was deflated for total working time of 43 minutes. We closed the incision with nylon stitches. Sterile dressings and a splint was applied to the left upper extremity. Patient taught procedure well no complication transferred recovery room stable condition. Postoperative note Nonweightbearing on the left upper extremity Follow-up in 2 weeks for suture removal initiation of physical therapy Patient is going on a trip on Monday told if she has a lot of swelling during her airplane to release the dressing that she can get swelling in the operative limb at the time of due to barometric pressure changes. Discussed using the hand moving the fingers as much tolerated Prescription sent to [facility] disclaimer This note was generated with [employer] dictation software. It may contain incorrect words, spelling, and punctuation that were not noted in checking the note before signing.
[2019-10-25] MEDS: Cefazolin 2 GM in 0.9% Normal Saline 100 ML IV (10:16)
[2019-10-25] MEDS: Mupirocin Ointment 22gm Tube 1 APPLIC (10:28)
[2019-10-25] MEDS: HYDROcodone Bitartrate/Apap 5/325 Tablet PO (13:32)
== END 2019-10-25 13:37 | disposition home or self-care (01) ==
LOC: SDC 08:33 → AC 08:34
PROVIDERS: Referring Provider Orthopaedic Surgery; Visit Provider Orthopaedic Surgery
PROC: (CPT 64721; principal; 2019-10-25 09:55)
DX: G56.02 Carpal tunnel syndrome, left upper limb (principal); G43.909 Migraine, unspecified, not intractable, without status migrainosus; K58.9 Irritable bowel syndrome, unspecified; G25.81 Restless legs syndrome; E78.00 Pure hypercholesterolemia, unspecified; F41.9 Anxiety disorder, unspecified; F32.9 Major depressive disorder, single episode, unspecified; Z87.448 Personal history of other diseases of urinary system; Z79.899 Other long term (current) drug therapy; Z87.891 Personal history of nicotine dependence
CPT/HCPCS: 64721; J7120; J2405

== ENCOUNTER 2019-11-06 11:15 | Day surgery (SDC) | payer BC, SELFPAY ==
[2019-10-15 13:56] VITALS: BMI 20.3
--- NOTE | 2019-10-22 03:01 | HP_ITS ---
Intake Intake Visit Reasons: left carpal tunnel Is patient in pain?: Yes Pain scale (1-10): 10 Allergies sulfamethoxazole [From Bactrim] Allergy (Verified 09/30/19 09:04) Hives trimethoprim [From Bactrim] Allergy (Verified 09/30/19 09:04) Hives NSAIDS (Non-Steroidal Anti-Inflamma Adverse Reaction (Verified 09/30/19 09:05) Other Medications alprazolam 1 mg tablet 1 mg PO BID 09/19/19 [History Confirmed 10/21/19] atorvastatin 10 mg tablet 10 mg PO DAILY 09/19/19 [History Confirmed 10/21/19] bupropion HCl XL 300 mg 24 hr tablet, extended release 300 mg PO QAM 09/19/19 [History Confirmed 10/21/19] eluxadoline 100 mg tablet 100 mg PO BID 09/19/19 [History Confirmed 10/21/19] galcanezumab-gnlm 120 mg/mL subcutaneous syringe 120 mg SC QMONTH 09/19/19 [History Confirmed 10/21/19] hydrochlorothiazide 12.5 mg capsule 12.5 mg PO DAILY 09/19/19 [History Confirmed 10/21/19] ketorolac 15.75 mg/spray nasal spray 15.75 mg INTRANASAL Q8H PRN 09/19/19 [History Confirmed 10/21/19] topiramate XR 100 mg capsule,extended release 24 hr 100 mg PO DAILY 09/19/19 [History Confirmed 10/21/19] Estradiol 1 mg PO DAILY 09/30/19 [History Confirmed 10/21/19] Zolpidem Tartrate [Ambien (Generic)] 5 mg PO QHS PRN PRN #14 tab 10/02/19 [Rx Confirmed 10/21/19] hydrocodone 5 mg-acetaminophen 325 mg tablet 2 tab PO Q6H PRN #30 tab 10/11/19 [Rx Confirmed 10/21/19] PFSH Social History (Updated 10/22/19 @ 15:01 by JOEL Reeves) Smoking Status: Former smoker HPI left carpal tunnel: Surgical H&P: Yes Details: Parts of this documentation were recorded by a scribe, this documentation accurately reflects the service provided and the decisions made by Larry rush PA 10/21/19 4671. JACQUELINE BREAUX is a 49 year old F here today for pain in the left hand secondary to carpal tunnel. She has constant pain and numbness in all the fingers. She saw Dr Yo last week and needs to sign consent today for upcoming release. No changes in medications or health history. Ortho Exam Right Wrist/Hand Skin/Wound: No Swelling, No Ecchymosis Left Wrist/Hand Skin/Wound: No Swelling, No Ecchymosis, No erythema Left Wrist: Yes ROM-Extension 0-60, Yes ROM-Flexion 0-80, Yes Durken's Test and Yes Phalen's; no Snuffbox tenderness or no Bety's Test WRIST: No acute abnormalities on inspection. She has full range of motion of the wrist and fingers. She has normal distal radial pulses and capillary refill. Patient does have evidence of carpal tunnel syndrome with positive Ray's and Phalen's test. Assessment & Plan Problems 1. Left carpal tunnel syndrome G56.02 Plan Patient presents today to sign updated consent for left carpal tunnel syndrome. Patient states that she thinks she already has a date scheduled for her surgery. Patient also states that she is going to have the right wrist done as soon as she is able after the left wrist before the first of the year. Risks and benefits of surgery were discussed with patient as well as the procedure and healing/rehabilitation. All of her questions were answered and consent was signed in office today. Patient be contacted by surgery department for presurgery/anesthesia testing. She will not know the time of her surgery until the day before in the afternoon. Patient also has presurgery antimicrobial cleanser to be used night before morning of the procedure. She has no other questions at this time. This note was generated with [employer] dictation software. It may contain incorrect words, spelling, and punctuation that were not noted in checking the note before signing. Coding Level of Care Code Off vis,est,level 2 Diagnoses Left carpal tunnel syndrome G56.02 10/22/19 1501 <Electronically signed by Larry MALDONADO> Date _ Larry MALDONADO
[2019-10-25 08:49] VITALS: BMI 19.6
[2019-11-06] VITALS (13 sets, daily range): BP systolic 93–128; BP diastolic 51–65; PULSE 78–88; RESP 15–16; TEMP 36.2–37; O2SAT 96–100
[2019-11-06] MEDS: Lactated Ringers 1,000 ML 100 ML IV (12:17)
--- NOTE | 2019-11-06 13:52 | PCM.HP.BLA ---
History and Physical [facility] I have re-examined the patient. There are no clinical changes since date of exam. Medical Records Department History and Physical Exam 10/22/19 0301 MR#: [id number] Acct: [id number] Name: JACQUELINE BREAUX Rep #: [id number] : 1970 From: Larry MALDONADO PCP: Status: PRE [facility] HPI left carpal tunnel: Surgical H&P: Yes Details: Parts of this documentation were recorded by a scribe, this documentation accurately reflects the service provided and the decisions made by me, JOEL Reeves 10/21/19 1401. JACQUELINE BREAUX is a 49 year old F here today for pain in the left hand secondary to carpal tunnel. She has constant pain and numbness in all the fingers. She saw Dr Yo last week and needs to sign consent today for upcoming release. No changes in medications or health history. Ortho Exam Right Wrist/Hand Skin/Wound: No Swelling, No Ecchymosis Left Wrist/Hand Skin/Wound: No Swelling, No Ecchymosis, No erythema Left Wrist: Yes ROM-Extension 0-60, Yes ROM-Flexion 0-80, Yes Durken's Test and Yes Phalen's; no Snuffbox tenderness or no Bety's Test WRIST: No acute abnormalities on inspection. She has full range of motion of the wrist and fingers. She has normal distal radial pulses and capillary refill. Patient does have evidence of carpal tunnel syndrome with positive Ray's and Phalen's test. No rales rhonchi wheezing, no abdominal pain, no audible bruits Assessment & Plan Problems 1. Left carpal tunnel syndrome G56.02 Plan Patient presents today to sign updated consent for left carpal tunnel syndrome. Patient states that she thinks she already has a date scheduled for her surgery. Patient also states that she is going to have the right wrist done as soon as she is able after the left wrist before the first of the year. Risks and benefits of surgery were discussed with patient as well as the procedure and healing/ rehabilitation. All of her questions were answered and consent was signed in office today. Patient be contacted by surgery department for presurgery/anesthesia testing. She will not know the time of her surgery until the day before in the afternoon. Patient also has presurgery antimicrobial cleanser to be used night before morning of the procedure. She has no other questions at this time. This note was generated with [employer] dictation software. It may contain incorrect words, spelling, 2
[2019-11-06] MEDS: Cefazolin 2 GM in 0.9% Normal Saline 100 ML IV (14:10)
--- NOTE | 2019-11-06 15:13 | SUR.OPER ---
# 2 hotdog under body maintained per anesthesia
--- NOTE | 2019-11-06 15:28 | OP.PCM_ITS ---
Report of Operation Date of Procedure: 11/06/19 Pre-Operative Diagnosis: right carpal tunnel syndrome, prev right ctr Post-Operative Diagnosis: same Surgery/Procedure Performed:: revision right carpal tunnel syndrome Type of Anesthesia:: Terrance Caceres Anesthesiologist: River Dennison Estimated Blood Loss (mL): min Fluids Replaced: 800cc Description of Procedure: Preoperative note Patient is a 49 year old patient with nerve conduction study confirming carpal tunnel syndrome. Patient failed previous operative treatment for her carpal tunnel release and has increased numbness in med nerve distribution, patient elected proceed with revision right carpal tunnel release. Risks benefits and alternatives surgery discussed with patient. Risks including but not limited to blood loss, blood clot, infection, neurovascular injury, failure procedure, loss of life and loss of limb. Patient is aware like proceed with right carpal tunnel release. Operative note Patient seen and examined preoperative holding area. right hand was marked. History and physical and consent reviewed. Patient was brought to the operating room placed supine on the operating table. Sign in, anesthesia, antibiotics were administered. right upper extremity was prepped and draped after Terrance block was initiated. All bony prominences well-padded SCDs placed on bilateral lower extremities. We marked out our incisions for our extended right carpal tunnel release at the intersection of Aaliyah's line in the fourth ray flexed and extended proximally over wrist crease using bunnel incision. Timeout was performed. We then checked ensure that the Terrance block was working with pickups which it was not so we performed a local block of 10cc 1% lidocaine. We then used a 15 blade to make a skin incision. We then dissected down tenotomy syllable of the transverse carpal ligament. We then used a new 15 blade cut through the transverse carpal ligament down to the level of the median nerve and extended proximally over wrist. We then further released the median nerve the combination of the 15 blade and tenotomies. The nerve was grayish in color and adherent to the transverse carpal ligament volarly. We released the transverse carpal ligament distally to the fat pad. there was scar tissue adherent to nerve which was released. We irrigated the incision with copious amounts of sterile saline. All bleeders were coagulated. The incision was closed with interrupted 4-0 nylon stitches. Tourniquet was deflated. Patient tolerated procedure well there were no complications. Patient transferred to recovery room in stable condition. Postoperative note Hospital pharmacy has prescription Leave dressing clean dry and intact Follow-up in 2 weeks Call with concerns This note was generated with [employer] dictation software. It may contain incorrect words, spelling, and punctuation that were not noted in checking the note before signing
--- NOTE | 2019-11-06 15:28 | DCINST_ITS ---
Discharge Diet: No Restrictions - keep incision clean and dry, follow up in 2 weeks for removal sutures, call with concerns Discharge Activity: May Not Drive May shower in (days): 1 Ice area for (Minutes): 20 - Every hour while awake. Weight Bearing Status: Weight bearing as tolerated Keep extremity elevated above heart level: Operative Extremity Call your doctor if your incision/area has: Continuous Slow Oozing, Sudden Increased Bleeding, Increased Pain/ Swelling, Increased Redness, Foul Smelling Discharge Call your doctor if you observe: Fever of 101 or Higher, Coldness, Increased Pain, Numbness or Tingling, Change in Color, Calf discomfort Allergies/Adverse Reactions: Allergies sulfamethoxazole [From Bactrim] Allergy (Verified 11/06/19 11:54) Hives trimethoprim [From Bactrim] Allergy (Verified 11/06/19 11:54) Hives NSAIDS (Non-Steroidal Anti-Inflamma Adverse Reaction (Verified 11/06/19 11:54) Other IBS Medications to take at Discharge alprazolam 1 mg tablet 1 mg PO BID 09/19/19 atorvastatin 10 mg tablet 10 mg PO DAILY 09/19/19 bupropion HCl 300 mg 24 hr tablet, extended release 300 mg PO QAM 09/19/19 eluxadoline 100 mg tablet 100 mg PO BID 09/19/19 galcanezumab-gnlm 120 mg/mL subcutaneous syringe 120 mg SC QMONTH 09/19/19 hydrochlorothiazide 12.5 mg capsule 12.5 mg PO DAILY 09/19/19 ketorolac 15.75 mg/spray nasal spray 15.75 mg INTRANASAL Q8H PRN 09/19/19 topiramate 100 mg capsule,extended release 24 hr 100 mg PO DAILY 09/19/19 Estradiol 1 mg PO DAILY 09/30/19 Zolpidem Tartrate [Ambien (Generic)] 5 mg PO QHS PRN PRN #14 tab 10/02/19 hydrocodone 5 mg-acetaminophen 325 mg tablet 2 tab PO Q6H PRN #30 tab 10/11/19 Oxycodone HCl/Acetaminophen [Percocet 5/325] 1 - 2 tablet PO Q6H PRN PRN 5 Days #10 tablet 11/06/19 The following prescriptions were given: Oxycodone HCl/Acetaminophen [Percocet 5/325] 1 - 2 tablet PO Q6H PRN PRN 5 Days #10 tablet PRN Reason: Pain Transmission Status: Received by [id number] Primary Care Physician: LIZZY NEGRETE [Other] Test Results: Test results from this visit will be discussed in further detail at your follow- up appointment, if applicable. Please Follow Up With: Marlee Yo, DO - [phone]
[2019-11-06] MEDS: HYDROcodone Bitartrate/Apap 5/325 Tablet PO (17:11)
== END 2019-11-06 18:00 | disposition home or self-care (01) ==
LOC: SDC 11:16 → AC 11:17
PROVIDERS: Referring Provider Orthopaedic Surgery; Visit Provider Orthopaedic Surgery
PROC: (CPT 64721; principal; 2019-11-06 12:35)
DX: G56.01 Carpal tunnel syndrome, right upper limb (principal); K58.9 Irritable bowel syndrome, unspecified; F32.9 Major depressive disorder, single episode, unspecified; F41.9 Anxiety disorder, unspecified; Z79.899 Other long term (current) drug therapy; Z87.891 Personal history of nicotine dependence
CPT/HCPCS: 64721; J7120; J2405

== ENCOUNTER → 2019-11-21 14:08 | Outpatient (CLI) | payer BC, SELFPAY ==
--- NOTE | 2019-11-21 14:08 | RAD_ITS ---
STUDY: X-RAY - CERVICAL SPINE REASON FOR EXAM: Female, 49 years old. NECK AND RIGHT SHOULDER PAIN TECHNIQUE: 5 view(s) of the cervical spine were obtained. COMPARISON: None FINDINGS: Normal anterior atlantoaxial articulation. Normal odontoid process. Normal cervical lordosis. Normal vertebral bodies and endplates. Normal disc space heights. Normal visualized intervertebral neuroforamina. Mild hypertrophic changes of facet joints is seen at multiple levels. The soft tissue structures are unremarkable. RAD/Cerv Spine 4 or 5 Views IMPRESSION: Mild hypertrophic changes of the facet joints at multiple levels. Electronically Signed: Rocco Marroquin MD at 19:23 EST , Service support ,
--- NOTE | 2019-11-21 14:08 | RAD_ITS ---
STUDY: X-RAY - RIGHT SHOULDER REASON FOR EXAM: Neck and shoulder pain. TECHNIQUE: 2 view(s) of the shoulder. COMPARISON: None. FINDINGS: Normal glenohumeral articulation. Normal acromioclavicular joint. Normal acromion. Normal humeral head and visualized proximal humerus. The soft tissue structures are unremarkable. Normal visualized pulmonary apex. RAD/Shoulder min 2 Views IMPRESSION: Normal x-ray examination of the right shoulder. Electronically Signed: Tyrell Salcido MD at 14:50 EST Tel , Service support ,
== END ==
PROVIDERS: Referring Provider Orthopaedic Surgery; Visit Provider Orthopaedic Surgery
DX: S49.91XA Unspecified injury of right shoulder and upper arm, initial encounter (principal); M79.601 Pain in right arm
CPT/HCPCS: 72050; 73030

== ENCOUNTER → 2019-11-29 09:39 | Outpatient (CLI) | payer BC, SELFPAY ==
--- NOTE | 2019-11-29 09:40 | MRI_ITS ---
STUDY: MRI RIGHT SHOULDER REASON FOR EXAM: Right shoulder pain status post fall following surgery. TECHNIQUE: Standardized fat and water weighted pulse sequences were obtained in all 3 orthogonal planes. COMPARISON: Radiographs 11/21/2019. FINDINGS: There is mild supraspinatus tendinosis (T2 coronal images 10-12) without discrete tendon tear. Normal infraspinatus tendon. Normal subscapularis tendon. Normal teres minor tendon. Normal supraspinatus muscle. Normal infraspinatus muscle. Normal subscapularis muscle. Normal teres minor muscle. There is a glenohumeral joint effusion. Normal humeral head and visualized proximal humerus. The biceps tenodesis appears intact (T2 sagittal image 9). There is a suspected tear of the posterior aspect of the superior labrum (T2 coronal images 9, 10). Normal capsulo- ligamentous complex. Normal acromioclavicular articulation. Status post posterior decompression. There is a small volume of subacromial-subdeltoid bursal fluid. Normal deltoid muscle. Normal trapezius muscle. MRI/Upper Ext Joint Only(Routine) IMPRESSION: Mild supraspinatus tendinosis without demonstrated rotator cuff tear. Intact biceps tenodesis. Suspected tear of the superior labrum. Small volume of subacromial-subdeltoid bursal fluid. Glenohumeral joint effusion. Electronically Signed: Tyrell Salcido MD at 11:39 EST Tel , Service support ,
== END ==
LOC: MRI 09:40
PROVIDERS: Referring Provider Orthopaedic Surgery; Visit Provider Orthopaedic Surgery
DX: S49.91XA Unspecified injury of right shoulder and upper arm, initial encounter (principal); G89.18 Other acute postprocedural pain; M25.511 Pain in right shoulder
CPT/HCPCS: 73221

== ENCOUNTER 2019-11-29 11:00 | Outpatient (RCR) | payer BC, SELFPAY ==
--- NOTE | 2019-11-27 12:25 | HP.PTEVAL ---
Patient's Visit Information JACQUELINE BREAUX is a 49 year old F referred to Physical Therapy by Marlee Yo DO with a diagnosis of Right shoulder injury. Date of Evaluation: 11/27/19 Physical Therapist: Yuki Hernandez DPT - Visit Plan Frequency: 2x /Week Duration: 4 Weeks Plan: Focus on ROM and pain mgmt - Subjective Findings: Right RC/acromioplasty/ope biceps tendonesis. Patient right shoulder arthrosopy ,subacromial decompression/ acromioplasty ,labral debridement and open biceps tendonesis on 10/02/[address] Yo at [facility]-2 weeks later had left carpal tunnel and Nov 08 Right carpal tunnel all performed by Dr. Yo- Fell on November 10. She now hurts from the neck all the way down to the pinky on the right. Pain is constant, sharp twinges and if she bends her neck a certain way (to the side or looking down) it feels like a pinch and a pop and its really painful. The pain is radiating down the arm is achy- can't get the pain under control. 10/10 at all times. Eases: nothing makes it better including pain meds, ice, heat. Yesterday she laid in bed all day long and did not move. As long as she can lay flat without any movement she is fine. She works from her computer and she can't even type at this point. Dr. Yo has ordered and MRI but the hospital has not called to get it scheduled yet. She lives in [place] and here- she has a daughter here who is having drug issues so she is back and forth. Does have pain mgtm in [place]. Plans to be in [place] until at least the 15th- then will go back the 17th for a pain mgmt apt- then will come back the 23 or 24th and be here awhile. The left hand is doing great but the right hand is tingling and painful. Sleep: disturbed. Neck pain and headaches- no Blurred vision or dizziness. 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 PMHx/Meds: none since surgery. - Objective Posture: FH, RS, increased guarding of the right UE. Gait: decreased arm swing and trunk rotation due to guarding. Palpation: tender throughout cervical spine, right shoulder, scapula, elbow- did not asesse wrist due to carpal tunnel surgery. Sensation: hypersensitiving. ROM Active: Flexion: 80 degrees, Abd: 60 degrees IR: ER: 45 degrees Elbow: full. Prom: Flexion: 120 degrees, Abd: 90 degrees IR: to belly, ER: 30 degrees- all significant pain. Strength: Isometric: 4/5 with severe pain in all directions - Goals Goal 1:: Patient will be I with HEP and progression Goal Time Frame: 4-6 Weeks Goal 2:: Patient will demo full AROM of the right shoulder Goal Time Frame: 4-6 Weeks Goal 3:: Patient will report no more than 2/10 pain for 1 week Goal Time Frame: 4-6 Weeks - Rehabilitation Potential Physical Therapy Diagnosis: Patient presents with hypomobility- she has decreased ROM, strength and muscular endurance leading to poor posture and increased pain with ADL's. Rehabilitation Potential: Fair - Anticipated Interventions Patient/Client Instruction: Educate patient on: Benefits of Fitness Program Therapeutic Exercise to Include: Strength training, Endurance training, Body mechanics, Postural training, Passive ROM, Active ROM, Scapular Strength/Stabilization For the Purpose of:: To improve ability to perform ADL's TENS: Yes Cryotherapy (ice pack, ice massage): Yes Thermo therapy (hot pack): Yes Ultrasound (thermal/non thermal): Yes For the Purpose of:: To decrease pain Thank you for the opportunity to evaluate your patient. For Medicare and Medicare HMO plans, please review the plan of care and approve it. It will need to be FAXED BACK to us at [phone] for Medicare purposes. For Medicare only, by signing this I certify the plan of care. Please let me know if there are questions or concerns regarding this plan of care. Physician Signature: Date:
--- NOTE | 2020-03-31 11:59 | HP.PT.NRP ---
JACQUELINE BREAUX was seen in my office for initial evaluation on 11/27/19. The following Plan of Care was established for this patient: Initial Frequency: 2x /Week Initial Duration: 4 Weeks Patient/Client Instruction: Educate patient on: Benefits of Fitness Program Therapeutic Exercise to Include: Strength training, Endurance training, Body mechanics, Postural training, Passive ROM, Active ROM, Scapular Strength/Stabilization For the Purpose of:: To improve ability to perform ADL's TENS: Yes Cryotherapy (ice pack, ice massage): Yes Thermo therapy (hot pack): Yes Ultrasound (thermal/non thermal): Yes For the Purpose of:: To decrease pain This patient was last seen in our office . Pertinent comments regarding their Physical therapy will appear below: Patient has not attended PT for over 8 weeks- appropriate to be d/c at this time and follow up with MD as needed. At this point I will be discontinuing this patient from physical therapy. I would be happy to see this patient again in the future if found appropriate by the physician. Thank you! Yuki Hernandez DPT
== END 2019-11-29 19:00 | disposition home or self-care (01) ==
LOC: PT 11:00
PROVIDERS: Referring Provider Orthopaedic Surgery; Visit Provider Orthopaedic Surgery
DX: Z98.890 Other specified postprocedural states (principal)
CPT/HCPCS: 97110; 97162

== ENCOUNTER → 2020-09-14 08:54 | Outpatient (CLI) | payer BC, SELFPAY ==
--- NOTE | 2020-09-14 09:02 | NM_ITS ---
CLINICAL: 50-year-old female with reported history of left hip arthroplasty with traumatic fall and resultant left hip pain. LIMITED 99m Tc MDP THREE PHASE BONE SCINTIGRAPHY COMPARISON: None available FINDINGS: Following the intravenous administration of 25.0 mCi of 99m Tc MDP, three-phase bone acquisitions of the pelvis reveal: 1. The flow and immediate static blood pool acquisitions demonstrate relatively symmetric-normal arterial and venous phase distribution of the radiopharmaceutical to the bilateral hemipelvis. Prominent radiopharmaceutical concentration is defined caudal to the urinary bladder in the distribution of the perineum likely representing urine contamination artifact. 2. Delayed images depict increased tracer uptake visualized in the posterior midline sacrum, distal coccyx. 3. Facilitated uptake is visualized in the acetabular and to lesser extent trochanteric and distal femoral components of the presumed symptomatic left hip prosthesis 4. An increase in radiotracer distribution is observed in the fifth lumbar vertebra posteriorly on the left. 5. The remaining limited skeletal structures are scintigraphically unremarkable. NM/Bone Scan Three Phase IMPRESSION: 1. The increase in radiopharmaceutical concentration defined in the posterior midline sacrum and coccyx likely represents a component of trauma-fracture. Dedicated plain film radiography is recommended for further evaluation. In patients less than 65 years of age, increased radiopharmaceutical concentration on bone scintigraphy in uncomplicated documented fracture, may take up to 18 months for complete scintigraphic resolution. (Parvez et al, Seminars of Nuclear Medicine, 13:104, 1983). 2. Enhanced tracer uptake visualized in the acetabular, trochanteric and femoral components of the painful left hip prosthesis may represent minimal loosening in the setting of operative intervention > 2 years prior to the current presentation. If an infectious etiology is a diagnostic consideration, correlation with labeled leukocyte imaging is recommended. 3. Degenerative arthritis appears expressed in the fifth lumbar vertebra as described above. Electronically Signed: Wilfredo Turner DO at 22:39 EDT Tel , Service support ,
== END ==
DX: Z47.1 Aftercare following joint replacement surgery (principal); M25.552 Pain in left hip
CPT/HCPCS: 78315

== ENCOUNTER → 2020-10-21 | Outpatient (CLI) | payer BC, SELFPAY | END | disposition home or self-care (01) | LOC: LABSPEC 17:35 | PROVIDERS: Referring Provider Internal Medicine Gastroenterology; Visit Provider Internal Medicine Gastroenterology | DX: Z11.59 Encounter for screening for other viral diseases (principal) | CPT/HCPCS: 87635; C9803; U0003 ==

== ENCOUNTER → 2020-12-31 15:14 | Outpatient (CLI) | payer BC, SELFPAY ==
--- NOTE | 2020-12-31 15:16 | CT_ITS ---
STUDY: CT ABDOMEN AND PELVIS WITH CONTRAST REASON FOR EXAM: Female, 50 years old. ABD PAIN, WEIGHT LOSS, N/V/D, H/O IBS. H/O VOLVULUS RADIATION DOSAGE (If Supplied By Facility): CTDIvol = ( 7.945 ) mGy, DLP = ( 332.58 ) mGycm TECHNIQUE: Transaxial images were obtained from the dome of the diaphragm to the symphysis pubis without oral contrast. Oral and amp; IV Gastrografin and amp; 100mL Isovue-300 was administered. Sagittal and coronal images were reconstructed. Individualized dose optimization techniques were used for this CT. COMPARISON: None. FINDINGS: The visualized lung bases are unremarkable. The visualized portions of the heart are within normal limits. Normal liver. Normal gallbladder and extrahepatic biliary system. Normal spleen. Normal pancreas. Normal bilateral adrenal glands. Normal right kidney. Normal left kidney. Normal visualized stomach. Normal small intestine. Oral contrast throughout the colon. There is non-visualization of the appendix. Normal abdominal aorta. Normal inferior vena cava. Normal retroperitoneum. Normal urinary bladder. There is a small umbilical hernia containing fat. Total hip arthroplasty on the left. CT/Abdomen/Pelvis WITH Contrast IMPRESSION: Normal enhanced CT of the abdomen and pelvis. Electronically Signed: Derian Celaya MD at 18:58 EST , Service support ,
== END ==
PROVIDERS: Referring Provider Internal Medicine Gastroenterology; Visit Provider Internal Medicine Gastroenterology
DX: R10.9 Unspecified abdominal pain (principal); R63.4 Abnormal weight loss; R11.0 Nausea
CPT/HCPCS: 74177; Q9967

== ENCOUNTER 2021-05-26 14:54 | Emergency (ER) | payer BC, SELFPAY ==
[2021-05-26 14:55] VITALS: BP 140/109; PULSE 84; RESP 16; TEMP 36.8; O2SAT 95; BMI 18.6
--- NOTE | 2021-05-26 15:19 | EKG12_ITS ---
Test Reason : CP Blood Pressure : / mmHG Vent. Rate : 082 BPM Atrial Rate : 082 BPM P-R Int : 148 ms QRS Dur : 084 ms QT Int : 360 ms P-R-T Axes : 071 051 053 degrees QTc Int : 420 ms Normal sinus rhythm Normal ECG Confirmed by HOMER DANIELS, DAVID ([id number]), image editor RAJENDRA MARTIN ([id number]) on 05/31/2021 12:54:49 PM Referred By: KERRY Confirmed By:DAVID CORONEL MD
[2021-05-26 15:20] VITALS: O2SAT 95
--- NOTE | 2021-05-26 15:26 | RAD_ITS ---
STUDY: X-RAY CHEST REASON FOR EXAM: Female, 50 years old. PT C/O CHEST PRESSURE AND SOB SINCE MONDAY. TECHNIQUE: Single AP portable view of the chest. COMPARISON: None. FINDINGS: EKG electrodes are seen. The lungs are clear and expanded. Scattered calcified granulomas. There is no demonstrated pleural abnormality. Normal size heart. Normal mediastinum and lizbeth. Normal visualized pulmonary arteries. Normal visualized aortic arch and descending thoracic aorta. Normal visualized thoracic spine. Normal visualized ribs, clavicles, and shoulders. There is no demonstrated abnormality of the visualized soft tissue structures of the upper abdomen. RAD/Chest 1 View (Portable) IMPRESSION: No acute abnormality is seen. Electronically Signed: Eduardo Michel MD at 15:36 EDT , Service support ,
--- NOTE | 2021-05-26 15:29 | ED.VIS.CHEST ---
HPI History of Present Illness Chief Complaint: Chest Pain Narrative Narrative: Patient presents with chest pain that has been constant for the past 3 days. She is describing a pressure with slight radiation to her back but without any tearing sensation. She has no pleuritic component. She tells me she has it all day and has not remembered a period where she had no pain in the past 3 days. She has no abdominal pain. She has no other radiation of the pain. No recent fever or chills. She tells me she feels like she is taking shallow inspirations but no real shortness of breath at rest. No syncope or near syncope. [facility] Medical History (Updated 05/26/21 @ 15:06 by Afua Maldonado) Hypercholesteremia Migraine Home Medications alprazolam 1 mg tablet 1 mg PO BID 09/19/19 [History Last Taken Unknown] bupropion HCl 300 mg 24 hr tablet, extended release 300 mg PO QAM 09/19/19 [History Last Taken Unknown] hydrochlorothiazide 12.5 mg capsule 12.5 mg PO DAILY 09/19/19 [History Last Taken Unknown] estradiol 1 mg PO DAILY 09/30/19 [History Last Taken Unknown] zolpidem 5 mg PO QHS PRN PRN #14 tab 10/02/19 [Rx Last Taken Unknown] hydrocodone-acetaminophen 5-325mg 5mg-325mg 2 tab PO Q6H PRN #30 tab 10/11/19 [Rx Last Taken Unknown] hydrocodone-acetaminophen 5-325mg 5mg-325mg 1 tab PO Q6H PRN #30 tab 11/21/19 [Rx Last Taken Unknown] eluxadoline [Viberzi] 100 mg PO BID 05/26/21 [History Last Taken Unknown] ondansetron 05/26/21 [History Last Taken Unknown] sumatriptan succinate 50 mg PO X1 05/26/21 [History Last Taken Unknown] topiramate [Trokendi XR] 200 mg PO DAILY 05/26/21 [History Last Taken Unknown] Allergy/AdvReac Type Severity Reaction Status Date / Time sulfamethoxazole Allergy Hives Verified 05/26/21 14:57 [From Bactrim] trimethoprim [From Bactrim] Allergy Hives Verified 05/26/21 14:57 NSAIDS (Non-Steroidal AdvReac Other Verified 05/26/21 14:57 Anti-Inflamma oxycodone [From Percocet] AdvReac NAUSEA, Verified 05/26/21 14:57 VOMITING Social History (Updated 02/18/20 @ 12:[address] Marlee Yo, DO) Smoking Status: Former smoker ROS ROS ED ROS Narrative Past medical history: Reviewed Medications: Reviewed Social history: Noncontributory Review of systems: All systems negative except as indicated General: No fever Eyes: No visual changes ENT: No upper airway congestion, normal voice Neck: No neck pain Cardiovascular: Chest pain as in HPI Respiratory: No shortness of breath or cough Gastrointestinal: No abdominal pain, nausea vomiting or diarrhea Genitourinary: No dysuria Musculoskeletal: Denies myalgias no difficulty with ambulation Skin: No rash Neurological: No memory loss, confusion or any focal weakness Psych: No recent behavioral changes Hematologic: No easy bleeding or easy bruising EXAM Physical Exam Narrative Exam Narrative: Physical exam General: Well nourished, Well developed, No Acute Distress. She appears anxious Head: Normocephalic, Atraumatic Eyes: Conjunctiva not pale ENT: Slightly dry membranes Neck: Supple, Nontender, No lymphadenopathy Cardiovascular: Regular rate, Regular rhythm Respiratory: No distress, CTA bilaterally Abdomen: Soft, Nontender, Nondistended Back: Nontender, Normal Inspection. Negative for: CVA tenderness Extremities: Nontender, No edema Skin: Normal color, No rash Neurological: Alert, Normal Strength, Normal Sensation Psychological: Normal affect Const Vital Signs: 05/26/21 14:55 05/26/21 15:06 05/26/21 15:24 Temperature 98.2 F Temperature Source Temporal Pulse Rate 84 Respiratory Rate 16 Respiratory Effort Normal Non-Labored Blood Pressure 140/109 H Blood Pressure Mean 119 Pulse Ox 95 Oxygen Delivery Method Room Air Room Air 05/26/21 16:07 Temperature Temperature Source Pulse Rate 82 Respiratory Rate 16 Respiratory Effort Blood Pressure 114/60 Blood Pressure Mean 78 Pulse Ox 98 Oxygen Delivery Method Room Air Heart Score History: Slightly/Non-Suspicious ECG: Normal Age: >45 - <65 years Risk Factors: 1 or 2 Risk Factors Troponin: </= Normal Limit Score: 2 MDM MDM MDM Narrative Medical decision making narrative: Patient has an unremarkable ED work-up. Her heart score is a 2, she has a negative D-dimer. Otherwise I believe she can be safely discharged. Lab Data Labs: Laboratory Results - last 24 hr 05/26/21 05/26/21 05/26/21 15:08 15:08 16:04 WBC 7.4 RBC 5.22 Hgb 16.0 H Hct 47.6 H MCV 91.2 MCH 30.7 MCHC 33.6 RDW Std Deviation 41.4 RDW Coeff of [place] 12.4 Plt Count 335 MPV 10.2 Immature Gran % (Auto) 0.300 Neut % (Auto) 50.6 Lymph % (Auto) 38.0 [place] % (Auto) 9.2 Eos % (Auto) 1.2 Baso % (Auto) 0.7 Absolute Neuts (auto) 3.8 Absolute Lymphs (auto) 2.82 Nucleated RBC % 0 D-Dimer Quant (PE/DVT) 0.28 Sodium 138 Potassium 3.4 L Chloride 107 Carbon Dioxide 27.0 Anion Gap 4 L BUN 10 Creatinine 0.98 Estim Creat Clear Calc 53.85 Est GFR (MDRD) Af Amer 76 Est GFR (MDRD) Non-Af 63 BUN/Creatinine Ratio 10.2 Glucose 81 Calcium 9.2 Troponin I High Sens < 3.0 L Discharge Plan Triage Chief Complaint: Chest Pain ED Provider: Jose Simons Dx/Rx/DC Orders Prescriptions: No Action hydrochlorothiazide 12.5 mg capsule 12.5 mg PO DAILY RF: 0 bupropion HCl [Wellbutrin XL] 300 mg tablet extended release 24 hr 300 mg PO QAM RF: 0 alprazolam 1 mg tablet 1 mg PO BID RF: 0 hydrocodone-acetaminophen 5-325 mg tablet 1 tab PO Q6H PRN (Reason: pain) Qty: 30 RF: 0 estradiol 1 MG tablet 1 mg PO DAILY RF: 0 zolpidem 5 MG tablet 5 mg PO QHS PRN PRN (Reason: Insomnia) Qty: 14 RF: 0 sumatriptan succinate 50 mg tablet 50 mg PO X1 RF: 0 ondansetron 4 mg tablet,disintegrating RF: 0 Trokendi XR 200 mg capsule,extended release 24hr 200 mg PO DAILY RF: 0 Viberzi 100 mg tablet 100 mg PO BID RF: 0 hydrocodone-acetaminophen [[place]] 5-325 mg tablet 2 tab PO Q6H PRN (Reason: pain) Qty: 30 RF: 0
[2021-05-26 15:45] LABS: Absolute Lymphocyte Count 2.82 X10^3/uL (0.83-4.51); Absolute Neutrophil Count 3.8 X10^3/uL (2.0-7.7); Basophil# 0.05 X10^3/uL; Basophil% 0.7 % (0-1); Eosinophil# 0.09 X10^3/uL; Eosinophils% 1.2 % (0-5); Hematocrit 47.6 % (37-47); Lymphocyte # 2.82 X10^3/ul (0.83-4.51); Mean Corp Hgb Conc 33.6 g/dL (32-36); Mean Corpuscular Hgb 30.7 pg (27.0-32.0); Mean Corpuscular Volume 91.2 fL (81-99); Mean Platelet Vol. 10.2 fl (6.2-12.0); Monocyte# 0.68 X10^3/uL; Monocyte% 9.2 % (0-10); NRBC Flagged by Analyzer 0 % (0-5); Neutrophil # 3.76 X10^3/uL (2.7-7.7); Neutrophil % 50.6 % (47-70); Platelet Count 335 K/mm3 (150-450); RBC Distribution Width CV 12.4 % (11.6-14.6); RBC Distribution Width SD 41.4 fl (35.1-43.9); Red Blood Count 5.22 M/mm3 (4.2-5.4); White Blood Count 7.4 K/mm3 (4.4-11.0)
[2021-05-26 16:07] VITALS: BP 114/60; PULSE 82; RESP 16; O2SAT 98
[2021-05-26 16:07] LABS: Anion Gap 4 (5-15); BUN 10 mg/dL (7-18); BUN/Creat Ratio 10.2 RATIO (10-20); Calcium,Total 9.2 mg/dL (8.5-10.1); Chloride 107 mmol/L (98-107); Creatinine, Serum 0.98 mg/dL (0.55-1.02); EST Glomerular Filtration Rate 63 mL/min (>60); Est Glom Filt Rate - Afr Amer 76 mL/min (>60); Estimated Creatinine Clearance 53.85 ml/min; Glucose 81 mg/dL (74-106); Potassium 3.4 mmol/L (3.5-5.1); Sodium Level 138 mmol/L (136-145); Troponin-I HS < 3.0 pg/mL (3.0-53.7)
[2021-05-26] MEDS: 0.9% Normal Saline 1,000 ML 999 ML IV (16:07)
[2021-05-26 16:24] LABS: D-Dimer Quantitative (DVT/PE) 0.28 FEU/ug/m (0.27-0.49)
[2021-05-26 17:10] VITALS: BP 129/77; PULSE 62; RESP 15; O2SAT 97
== END 2021-05-26 17:11 | disposition home or self-care (01) ==
PROVIDERS: Emergency Provider Emergency Medicine
DX: R07.89 Other chest pain (principal); E78.00 Pure hypercholesterolemia, unspecified; G43.909 Migraine, unspecified, not intractable, without status migrainosus; Z79.899 Other long term (current) drug therapy; Z87.891 Personal history of nicotine dependence
CPT/HCPCS: 71045; 80048; 84484; 85025; 85379; 93005; 96360; 99285; J7030; A4216

== ENCOUNTER 2021-12-06 14:18 | Outpatient (CLI) | payer BC, SELFPAY ==
[2021-12-06 17:50] LABS: Hematocrit 42.2 % (37-47); Hemoglobin 13.7 g/dL (12.0-15.0); Mean Corp Hgb Conc 32.5 g/dL (32-36); Mean Corpuscular Hgb 29.3 pg (27.0-32.0); Mean Corpuscular Volume 90.4 fL (81-99); Platelet Count 384 K/mm3 (150-450); RBC Distribution Width CV 11.7 % (11.6-14.6); RBC Distribution Width SD 38.7 fl (35.1-43.9); Red Blood Count 4.67 M/mm3 (4.2-5.4); White Blood Count 6.9 K/mm3 (4.4-11.0)
[2021-12-06 18:01] LABS: Erythrocyte Sedimentation Rate 2 mm/hr (0-30)
[2021-12-06 18:22] LABS: AST(SGOT) 9 U/L (15-37); Alanine Aminotransfer ALT/SGPT 17 U/L (13-56); Albumin, Serum 3.3 g/dL (3.2-5.0); Alkaline Phosphatase 58 U/L (45-117); Anion Gap 6 (5-15); BUN 19 mg/dL (7-18); BUN/Creat Ratio 26.9 RATIO (10-20); CRP 3.06 mg/L (0.0-3.0); Calcium,Total 8.9 mg/dL (8.5-10.1); Chloride 109 mmol/L (98-107); Creatinine, Serum 0.71 mg/dL (0.55-1.02); EST Glomerular Filtration Rate 92 mL/min (>60); Est Glom Filt Rate - Afr Amer 111 mL/min (>60); Globulin 3.3 g/dL (2.2-4.2); Glucose 79 mg/dL (74-106); Potassium 3.5 mmol/L (3.5-5.1); Protein, Total 6.6 g/dL (6.4-8.2); Sodium Level 143 mmol/L (136-145); Thyroid Stim Hormone (TSH) < 0.01 uIU/mL (0.358-3.74)
== END 2021-12-06 23:59 | disposition short-term general hospital (02) ==
LOC: MTLAB 14:19
PROVIDERS: Referring Provider Internal Medicine Gastroenterology; Visit Provider Internal Medicine Gastroenterology
DX: R10.9 Unspecified abdominal pain (principal)
CPT/HCPCS: 36415; 80053; 84436; 84443; 85027; 85652; 86140

== ENCOUNTER 2021-12-08 08:51 | Outpatient (CLI) | payer BC, SELFPAY ==
--- NOTE | 2021-12-08 09:00 | RAD_ITS ---
EXAM: XR ABDOMEN, 1 VIEW CLINICAL INDICATION: WEIGHT LOSS Technologist Notes IBS x6-8 YEARS ACHY/STABBING PAIN CENTERED ANTERIOR NEAR XIPHOID AREA NOTHING HELPS THE PAIN, EATING MAKES THE PAIN WORSE LOST 30 LBS IN THE LAST YEAR PATIENT REFUSED SMALL BOWEL SERIES, COULD NOT DRINK CONTRAST, ORDERING DOCTOR NOTIFIED TECHNIQUE: Frontal supine view of the abdomen/pelvis. This report was created using [employer] report generation technology. COMPARISON: None. FINDINGS: LOWER THORAX: No acute pathology. GASTROINTESTINAL TRACT: Large amount of stool in the rectal vault can suggest constipation. ORGANS: Unremarkable as visualized. No organomegaly. No abnormal calcifications. BONES/JOINTS: Total left hip arthroplasty. SOFT TISSUES: No acute pathology. RAD/Abdomen Single View IMPRESSION: Large amount of stool in the rectal vault can suggest constipation. Electronically Signed: Lars Singer MD at 17:59 EST , Service support ,
== END 2021-12-08 23:59 | disposition short-term general hospital (02) ==
LOC: RAD 08:52
PROVIDERS: Referring Provider Internal Medicine Gastroenterology; Visit Provider Internal Medicine Gastroenterology
DX: R10.9 Unspecified abdominal pain (principal); R63.4 Abnormal weight loss
CPT/HCPCS: 74018

== ENCOUNTER 2022-01-27 16:20 | Outpatient (CLI) | payer BC, SELFPAY ==
[2022-01-27 17:59] LABS: Absolute Lymphocyte Count 2.66 X10^3/uL (0.83-4.51); Absolute Neutrophil Count 6.3 X10^3/uL (2.0-7.7); Basophil# 0.04 X10^3/uL; Basophil% 0.4 % (0-1); Eosinophil# 0.08 X10^3/uL; Eosinophils% 0.8 % (0-5); Hematocrit 45.7 % (37-47); Hemoglobin 15.3 g/dL (12.0-15.0); Lymphocyte # 2.66 X10^3/ul (0.83-4.51); Lymphocyte % 27.3 % (19-41); Mean Corp Hgb Conc 33.5 g/dL (32-36); Mean Corpuscular Hgb 29.5 pg (27.0-32.0); Mean Corpuscular Volume 88.2 fL (81-99); Mean Platelet Vol. 9.6 fl (6.2-12.0); Monocyte# 0.61 X10^3/uL; Monocyte% 6.3 % (0-10); NRBC Flagged by Analyzer 0 % (0-5); Neutrophil # 6.32 X10^3/uL (2.7-7.7); Neutrophil % 64.9 % (47-70); Platelet Count 365 K/mm3 (150-450); RBC Distribution Width SD 38.6 fl (35.1-43.9); Red Blood Count 5.18 M/mm3 (4.2-5.4); White Blood Count 9.7 K/mm3 (4.4-11.0)
[2022-01-27 18:22] LABS: Vitamin D,25 Hydroxy 22.1 ng/mL
[2022-01-27 18:40] LABS: AST(SGOT) 10 U/L (15-37); Alanine Aminotransfer ALT/SGPT 20 U/L (13-56); Albumin, Serum 3.4 g/dL (3.2-5.0); Alkaline Phosphatase 71 U/L (45-117); Anion Gap 5 (5-15); BUN 12 mg/dL (7-18); BUN/Creat Ratio 16.3 RATIO (10-20); Calcium,Total 8.9 mg/dL (8.5-10.1); Chloride 105 mmol/L (98-107); Creatinine, Serum 0.74 mg/dL (0.55-1.02); EST Glomerular Filtration Rate 88 mL/min (>60); Est Glom Filt Rate - Afr Amer 106 mL/min (>60); Ferritin 26 ng/mL (8-252); Globulin 3.3 g/dL (2.2-4.2); Glucose 101 mg/dL (74-106); Protein, Total 6.7 g/dL (6.4-8.2); Sodium Level 138 mmol/L (136-145); T4 Free Direct 1.12 ng/dL (0.76-1.46); Thyroid Stim Hormone (TSH) < 0.01 uIU/mL (0.358-3.74)
== END 2022-01-27 23:59 | disposition home or self-care (01) ==
PROVIDERS: Visit Provider Internal Medicine Endocrinology, Diabetes & Metabolism
DX: E05.90 Thyrotoxicosis, unspecified without thyrotoxic crisis or storm (principal)
CPT/HCPCS: 36415; 80053; 82306; 82728; 84439; 84443; 85025

== ENCOUNTER → 2022-03-03 11:44 | Outpatient (CLI) | payer BC, SELFPAY ==
[2022-03-03 15:10] LABS: Absolute Lymphocyte Count 2.35 X10^3/uL (0.83-4.51); Absolute Neutrophil Count 3.5 X10^3/uL (2.0-7.7); Basophil# 0.04 X10^3/uL; Basophil% 0.6 % (0-1); Eosinophil# 0.07 X10^3/uL; Eosinophils% 1.1 % (0-5); Hematocrit 46.5 % (37-47); Hemoglobin 15.1 g/dL (12.0-15.0); Lymphocyte # 2.35 X10^3/ul (0.83-4.51); Lymphocyte % 36.8 % (19-41); Mean Corp Hgb Conc 32.5 g/dL (32-36); Mean Corpuscular Hgb 28.7 pg (27.0-32.0); Mean Corpuscular Volume 88.2 fL (81-99); Mean Platelet Vol. 9.9 fl (6.2-12.0); Monocyte# 0.41 X10^3/uL; Monocyte% 6.4 % (0-10); NRBC Flagged by Analyzer 0 % (0-5); Neutrophil # 3.49 X10^3/uL (2.7-7.7); Neutrophil % 54.8 % (47-70); Platelet Count 349 K/mm3 (150-450); RBC Distribution Width CV 12.5 % (11.6-14.6); RBC Distribution Width SD 40.5 fl (35.1-43.9); Red Blood Count 5.27 M/mm3 (4.2-5.4); White Blood Count 6.4 K/mm3 (4.4-11.0)
[2022-03-03 15:39] LABS: ALB/GLOB Ratio 1.1 RATIO (0.9-2.4); AST(SGOT) 11 U/L (15-37); Alanine Aminotransfer ALT/SGPT 16 U/L (13-56); Albumin, Serum 3.5 g/dL (3.2-5.0); Alkaline Phosphatase 68 U/L (45-117); Anion Gap 3 (5-15); BUN 12 mg/dL (7-18); BUN/Creat Ratio 16.7 RATIO (10-20); Calcium,Total 8.9 mg/dL (8.5-10.1); Chloride 108 mmol/L (98-107); Creatinine, Serum 0.72 mg/dL (0.55-1.02); EST Glomerular Filtration Rate 90 mL/min (>60); Est Glom Filt Rate - Afr Amer 109 mL/min (>60); Ferritin 18 ng/mL (8-252); Globulin 3.3 g/dL (2.2-4.2); Glucose 74 mg/dL (74-106); Potassium 3.6 mmol/L (3.5-5.1); Protein, Total 6.8 g/dL (6.4-8.2); Sodium Level 141 mmol/L (136-145); T4 Free Direct 0.98 ng/dL (0.76-1.46); Thyroid Stim Hormone (TSH) < 0.01 uIU/mL (0.358-3.74)
[2022-03-03 15:58] LABS: Vitamin D,25 Hydroxy 32.2 ng/mL
== END ==
DX: E05.90 Thyrotoxicosis, unspecified without thyrotoxic crisis or storm (principal)
CPT/HCPCS: 36415; 80053; 82306; 82728; 84439; 84443; 85025

== ENCOUNTER → 2022-06-13 | Outpatient (CLI) | payer BC, SELFPAY ==
[2022-06-13 15:18] LABS: Absolute Lymphocyte Count 2.29 X10^3/uL (0.83-4.51); Absolute Neutrophil Count 4.1 X10^3/uL (2.0-7.7); Basophil# 0.04 X10^3/uL; Basophil% 0.6 % (0-1); Eosinophil# 0.08 X10^3/uL; Eosinophils% 1.1 % (0-5); Hematocrit 49.3 % (37-47); Hemoglobin 16.2 g/dL (12.0-15.0); Lymphocyte # 2.29 X10^3/ul (0.83-4.51); Lymphocyte % 32.7 % (19-41); Mean Corp Hgb Conc 32.9 g/dL (32-36); Mean Corpuscular Hgb 30.2 pg (27.0-32.0); Mean Corpuscular Volume 91.8 fL (81-99); Mean Platelet Vol. 9.5 fl (6.2-12.0); Monocyte# 0.47 X10^3/uL; Monocyte% 6.7 % (0-10); NRBC Flagged by Analyzer 0 % (0-5); Neutrophil # 4.11 X10^3/uL (2.7-7.7); Neutrophil % 58.8 % (47-70); Platelet Count 356 K/mm3 (150-450); RBC Distribution Width CV 12.5 % (11.6-14.6); RBC Distribution Width SD 42.2 fl (35.1-43.9); Red Blood Count 5.37 M/mm3 (4.2-5.4)
[2022-06-13 15:49] LABS: ALB/GLOB Ratio 0.9 RATIO (0.9-2.4); AST(SGOT) 13 U/L (15-37); Alanine Aminotransfer ALT/SGPT 18 U/L (13-56); Albumin, Serum 3.6 g/dL (3.2-5.0); Alkaline Phosphatase 79 U/L (45-117); Anion Gap 8 (5-15); BUN 16 mg/dL (7-18); BUN/Creat Ratio 18.5 RATIO (10-20); Calcium,Total 9.6 mg/dL (8.5-10.1); Chloride 105 mmol/L (98-107); Creatinine, Serum 0.86 mg/dL (0.55-1.02); EST Glomerular Filtration Rate 73 mL/min (>60); Est Glom Filt Rate - Afr Amer 88 mL/min (>60); Globulin 3.8 g/dL (2.2-4.2); Glucose 85 mg/dL (74-106); Potassium 3.8 mmol/L (3.5-5.1); Protein, Total 7.4 g/dL (6.4-8.2); Sodium Level 141 mmol/L (136-145); T4 Free Direct 0.85 ng/dL (0.76-1.46); Thyroid Stim Hormone (TSH) 0.01 uIU/mL (0.358-3.74)
== END | disposition home or self-care (01) ==
PROVIDERS: Visit Provider Internal Medicine Endocrinology, Diabetes & Metabolism
DX: E05.90 Thyrotoxicosis, unspecified without thyrotoxic crisis or storm (principal)
CPT/HCPCS: 36415; 80053; 84439; 84443; 85025

== ENCOUNTER → 2022-11-24 | Outpatient (CLI) | payer BC, SELFPAY ==
[2022-11-24 15:34] LABS: Absolute Lymphocyte Count 2.63 X10^3/uL (0.83-4.51); Absolute Neutrophil Count 4.1 X10^3/uL (2.0-7.7); Basophil# 0.04 X10^3/uL; Basophil% 0.5 % (0-1); Eosinophil# 0.09 X10^3/uL; Eosinophils% 1.2 % (0-5); Hematocrit 48.6 % (37-47); Hemoglobin 15.7 g/dL (12.0-15.0); Lymphocyte # 2.63 X10^3/ul (0.83-4.51); Lymphocyte % 35.7 % (19-41); Mean Corp Hgb Conc 32.3 g/dL (32-36); Mean Corpuscular Hgb 31.2 pg (27.0-32.0); Mean Corpuscular Volume 96.4 fL (81-99); Mean Platelet Vol. 9.6 fl (6.2-12.0); Monocyte# 0.52 X10^3/uL; Monocyte% 7.1 % (0-10); NRBC Flagged by Analyzer 0 % (0-5); Neutrophil # 4.06 X10^3/uL (2.7-7.7); Neutrophil % 55.2 % (47-70); Platelet Count 342 K/mm3 (150-450); RBC Distribution Width CV 12.4 % (11.6-14.6); RBC Distribution Width SD 43.8 fl (35.1-43.9); Red Blood Count 5.04 M/mm3 (4.2-5.4); White Blood Count 7.4 K/mm3 (4.4-11.0)
[2022-11-24 16:35] LABS: ALB/GLOB Ratio 1.2 RATIO (0.9-2.4); AST(SGOT) 11 U/L (15-37); Alanine Aminotransfer ALT/SGPT 18 U/L (13-56); Albumin, Serum 3.7 g/dL (3.2-5.0); Alkaline Phosphatase 69 U/L (45-117); Anion Gap 7 (5-15); BUN 17 mg/dL (7-18); BUN/Creat Ratio 21.4 RATIO (10-20); Calcium,Total 9.4 mg/dL (8.5-10.1); Chloride 107 mmol/L (98-107); Creatinine, Serum 0.79 mg/dL (0.55-1.02); EST Glomerular Filtration Rate 80 mL/min (>60); Est Glom Filt Rate - Afr Amer 97 mL/min (>60); Globulin 3.2 g/dL (2.2-4.2); Glucose 78 mg/dL (74-106); Potassium 3.9 mmol/L (3.5-5.1); Protein, Total 6.9 g/dL (6.4-8.2); Sodium Level 141 mmol/L (136-145); T4 Free Direct 0.79 ng/dL (0.76-1.46); Thyroid Stim Hormone (TSH) 1.57 uIU/mL (0.358-3.74)
== END | disposition home or self-care (01) ==
LOC: MTLAB 13:47
DX: E05.90 Thyrotoxicosis, unspecified without thyrotoxic crisis or storm (principal)
CPT/HCPCS: 36415; 80053; 84439; 84443; 85025

== ENCOUNTER → 2023-05-31 | Outpatient (CLI) | payer BC, SELFPAY ==
--- NOTE | 2023-05-31 07:37 | MRI_ITS ---
STUDY: MRI LEFT SHOULDER REASON FOR EXAM: Female, 52 years old. Shoulder pain. TECHNIQUE: Standardized fat and water weighted pulse sequences were obtained in all 3 orthogonal planes. COMPARISON: None. FINDINGS: Supraspinatus and infraspinatus tendinosis without a partial thickness or full thickness tear (coronal series 7 images 5-11). Subscapularis tendinosis with articular surface fraying and thickening. No partial thickness or full thickness tear identified (axial series 4 images 7-12). Normal teres minor tendon. Normal supraspinatus muscle. Normal infraspinatus muscle. Normal subscapularis muscle. Normal teres minor muscle. Mild thinning of the articular cartilage of the glenohumeral joint with a moderate-sized glenohumeral joint effusion (axial series 4 images 6-13). Cystic change in the lateral aspect of the humeral head (axial series 4 image 6). Normal biceps labral complex. Normal intracapsular long biceps tendon. Nondisplaced superior labral tear (coronal series 7 image 10). Normal capsulo- ligamentous complex. Normal rotator interval. AC joint hypertrophy with small AC joint effusion resulting in narrowing of the subacromial space (coronal series 5 images 8-13). There is a Type II morphology (curved), with a neutral orientation. Fluid in the subacromial-subdeltoid bursa (coronal series 5 images 8-10). Normal visualized coracohumeral and coracoacromial ligaments. Normal quadrilateral space. Normal axillary space. Normal deltoid muscle. Normal trapezius muscle. MRI/Upper Ext Joint Only(Routine) IMPRESSION: Supraspinatus, infraspinatus and subscapularis tendinosis. No partial thickness or full thickness tear. Mild arthrosis of the glenohumeral joint. Cystic change in the humeral head. Nondisplaced superior labral tear. Small AC joint effusion with AC joint hypertrophy resulting in narrowing of the subacromial space. Moderate-sized glenohumeral joint effusion with fluid in the subacromial-subdeltoid bursa. Electronically Signed: Jemal Barber MD at 10:01 EDT ,
== END | disposition home or self-care (01) ==
LOC: MRI 07:24
DX: M25.512 Pain in left shoulder (principal); Z47.89 Encounter for other orthopedic aftercare
CPT/HCPCS: 73221

== ENCOUNTER → 2025-03-03 | Outpatient (CLI) | payer BC, SELFPAY ==
[2025-03-03 19:22] LABS: CRP 3.17 mg/L (0.0-3.0)
[2025-03-05 17:08] LABS: Endomysial Antibody IgA Negative (Negative); Immunoglobulin A 190 mg/dL (87-352); t-Transglutaminase IgA <2 U/mL (0-3)
== END | disposition home or self-care (01) ==
LOC: MTLAB 16:28
PROVIDERS: Referring Provider Internal Medicine Gastroenterology; Visit Provider Internal Medicine Gastroenterology
DX: R10.9 Unspecified abdominal pain (principal); R19.7 Diarrhea, unspecified
CPT/HCPCS: 36415; 82784; 83516; 86140; 86255